=== PATIENT | female | born 1950 | race African-American/Black ===

== ENCOUNTER 2021-07-18 17:39 | Inpatient (IN) | payer OTHER ==
[2021-07-18] MEDS ORDERED: ACETAMINOPHEN 1000 MG/100 ML VIAL (NON FORMULARY) IVPB ONE (18:32)
[2021-07-18] MEDS ORDERED: SODIUM CHLORIDE 500 ML IV STA ×2 (18:33→23:01)
[2021-07-18] MEDS ORDERED: ACETAMINOPHEN INJECTION 100 ML IVPB ONE (18:35)
[2021-07-18 20:17] LABS: BASO % 0.8 % (0-2.0); EOS % 0.1 % (0-4.5); HEMATOCRIT 36.3 % (32.4-45.2); HEMOGLOBIN 11.6 GM/dL (10.7-15.3); LYMPH % 18.6 % (8-40); MCH 21.7 pg (25.7-33.7); MEAN CELL VOLUME 67.6 fl (80-96); MEAN PLT VOLUME 8.9 fl (7.5-11.1); NEUT % 73.5 % (42.8-82.8); PLATELET COUNT 264 10^3/uL (134-434); RBC 5.37 M/mm3 (3.60-5.2); RDW 15.5 % (11.6-15.6); WHITE BLOOD COUNT 9.3 K/mm3 (4.0-10.0)
[2021-07-18 20:20] LABS: EPI CELLS >36 /uL (0-25.1); HYALINE CASTS 2 /uL (0-3.1); URINE APPEARANCE TURBID; URINE BACTERIA 771 /uL (0-1359); URINE BILIRUBIN NEGATIVE (NEGATIVE); URINE COLOR YELLOW; URINE GLUCOSE (UA) NEGATIVE (NEGATIVE); URINE KETONE 1+ (NEGATIVE); URINE LEUK ESTERASE NEGATIVE (NEGATIVE); URINE NITRITE NEGATIVE (NEGATIVE); URINE PROTEIN 4+ (NEGATIVE); URINE RBC 15 /uL (0-23.9); URINE WBC 18 /uL (0-25.8)
[2021-07-18 20:21] LABS: INR 1.15 (0.83-1.09); PROTHROMBIN TIME (PATIENT) 13.8 SEC (9.7-13.0)
[2021-07-18 20:24] LABS: ACTIVATED PTT 26.6 SECONDS (25.2-36.5)
[2021-07-18 20:39] LABS: VENOUS BASE EXCESS -0.4 mmol/L (-2-2); VENOUS O2 SATURATION 27.3 % (70-80); VENOUS PCO2 45.1 mmHg (38-52); VENOUS PH 7.367 (7.310-7.410)
[2021-07-18 20:44] LABS: ANISOCYTOSIS 1+; MACROCYTOSIS 0; OVALOCYTE 1+; PLATELET ESTIMATE NORMAL
[2021-07-18 20:50] LABS: CHLORIDE 101 mmol/L (98-107); SODIUM 136 mmol/L (136-145)
[2021-07-18 20:51] LABS: CALCIUM 8.9 mg/dL (8.5-10.1)
[2021-07-18 20:52] LABS: ALBUMIN 3.6 g/dl (3.4-5.0); ANION GAP 10 MMOL/L (8-16); BLOOD UREA NITROGEN 17.2 mg/dL (7-18); CO2 25 mmol/L (21-32); GLUCOSE,RANDOM 127 mg/dL (74-106)
[2021-07-18 20:55] LABS: CREATININE 1.4 mg/dL (0.55-1.3); SGOT/AST 24 U/L (15-37); SGPT/ALT 16 U/L (13-61)
[2021-07-18 20:56] LABS: LDH 405 U/L (84-246)
[2021-07-18 20:57] LABS: BILIRUBIN,TOTAL 0.6 mg/dL (0.2-1); TOT PROT 7.8 g/dl (6.4-8.2)
[2021-07-18] MEDS ORDERED: CEFTRIAXONE 1 MG in DEXTROSE 5%-WATER - 50 ML IVPB ONE (20:57)
[2021-07-18 20:58] LABS: ALK PHOS 86 U/L (45-117)
[2021-07-18] MEDS ORDERED: CEFTRIAXONE 1 GM/50 ML BAG ONE (21:32)
[2021-07-19] MEDS ORDERED: CEFTRIAXONE 1 GM in DEXTROSE 5%-WATER - 50 ML IVPB SCH (10:00)
[2021-07-19] MEDS ORDERED: CEFTRIAXONE 1 GM/50 ML BAG ONE (10:07)
[2021-07-19] MEDS ORDERED: HEPARIN NA (PORCINE) 5,000 UNITS/ML 1ML VIAL ONE (10:07)
[2021-07-19] MEDS ORDERED: INSULIN (LEVEMIR) 100 UNITS/ML UNITS SQ ONE (11:20)
[2021-07-19] MEDS: INSULIN (LEVEMIR) 100 UNITS/ML UNITS SQ SCH (11:34)
[2021-07-19] MEDS: HEPARIN NA (PORCINE) 5,000 UNITS/ML 1ML VIAL SQ SCH ×2 (11:34→23:25)
[2021-07-19] MEDS ORDERED: metFORMIN HCL 500 MG TABLET (FP) ONE (16:45)
[2021-07-19] MEDS: metFORMIN HCL 500 MG TABLET (FP) PO SCH (16:54)
[2021-07-19] MEDS: ATORVASTATIN CA 20 MG TABLET (FP) PO SCH (23:25)
[2021-07-20 01:58] VITALS: BMI 32.8
[2021-07-20] MEDS: ACETAMINOPHEN 325 MG TABLET (FP) PO PRN ×2 (04:20→18:12)
[2021-07-20] MEDS: metFORMIN HCL 500 MG TABLET (FP) PO SCH ×2 (07:54→16:40)
[2021-07-20] MEDS: INSULIN (LEVEMIR) 100 UNITS/ML UNITS SQ SCH (07:55)
[2021-07-20 08:14] LABS: BASO % 0.7 % (0-2.0); EOS % 1.5 % (0-4.5); HEMATOCRIT 33.2 % (32.4-45.2); HEMOGLOBIN 10.7 GM/dL (10.7-15.3); LYMPH % 18.4 % (8-40); MCHC 32.1 g/dl (32.0-36.0); MEAN CELL VOLUME 68.6 fl (80-96); MEAN PLT VOLUME 8.7 fl (7.5-11.1); MONO % 11.1 % (3.8-10.2); NEUT % 68.3 % (42.8-82.8); PLATELET COUNT 255 10^3/uL (134-434); RBC 4.83 M/mm3 (3.60-5.2); RDW 15.8 % (11.6-15.6); WHITE BLOOD COUNT 8.9 K/mm3 (4.0-10.0)
[2021-07-20 08:21] LABS: ALBUMIN 2.9 g/dl (3.4-5.0); BLOOD UREA NITROGEN 24.3 mg/dL (7-18)
[2021-07-20 08:25] LABS: BILIRUBIN,TOTAL 0.5 mg/dL (0.2-1); CREATININE 1.5 mg/dL (0.55-1.3)
[2021-07-20 08:26] LABS: TOT PROT 6.6 g/dl (6.4-8.2)
[2021-07-20] MEDS ORDERED: cefTRIAXone SODIUM 1 GM VIAL ONE (10:52)
[2021-07-20] MEDS ORDERED: DEXTROSE 5%-WATER - 50 ML IVPB ONE (10:52)
[2021-07-20] MEDS ORDERED: PT OWN MED DRAWER 7, Y5N ONE (10:52)
[2021-07-20] MEDS: CEFTRIAXONE 1 GM in DEXTROSE 5%-WATER - 50 ML IVPB SCH (10:55)
[2021-07-20] MEDS: HEPARIN NA (PORCINE) 5,000 UNITS/ML 1ML VIAL SQ SCH ×2 (10:55→21:41)
[2021-07-20] MEDS: ATORVASTATIN CA 20 MG TABLET (FP) PO SCH (21:40)
[2021-07-21] MEDS: ENOXAPARIN NA (PORCINE) 80 MG/0.8 ML DISP.SYRIN SQ SCH ×3 (00:30→21:00)
[2021-07-21] MEDS: ACETAMINOPHEN 325 MG TABLET (FP) PO PRN (05:25)
[2021-07-21] MEDS: metFORMIN HCL 500 MG TABLET (FP) PO SCH ×2 (06:50→16:59)
[2021-07-21] MEDS: INSULIN (LEVEMIR) 100 UNITS/ML UNITS SQ SCH (06:53)
[2021-07-21 07:46] LABS: BASO % 1.2 % (0-2.0); EOS % 2.8 % (0-4.5); HEMATOCRIT 32.1 % (32.4-45.2); HEMOGLOBIN 10.4 GM/dL (10.7-15.3); LYMPH % 23.2 % (8-40); MCH 22.1 pg (25.7-33.7); MCHC 32.4 g/dl (32.0-36.0); MEAN CELL VOLUME 68.2 fl (80-96); MEAN PLT VOLUME 8.6 fl (7.5-11.1); MONO % 12.1 % (3.8-10.2); NEUT % 60.7 % (42.8-82.8); PLATELET COUNT 258 10^3/uL (134-434); RBC 4.71 M/mm3 (3.60-5.2); RDW 15.8 % (11.6-15.6); WHITE BLOOD COUNT 7.3 K/mm3 (4.0-10.0)
[2021-07-21 08:04] LABS: CALCIUM 8.1 mg/dL (8.5-10.1)
[2021-07-21 08:05] LABS: ALBUMIN 2.6 g/dl (3.4-5.0)
[2021-07-21 08:08] LABS: CREATININE 1.2 mg/dL (0.55-1.3)
[2021-07-21 08:10] LABS: BILIRUBIN,TOTAL 0.4 mg/dL (0.2-1); TOT PROT 6.1 g/dl (6.4-8.2)
[2021-07-21] MEDS ORDERED: ASPIRIN 325 MG TABLET PO SCH (10:00)
[2021-07-21] MEDS ORDERED: ENOXAPARIN NA (PORCINE) 40 MG/0.4 ML DISP.SYRIN SQ SCH (10:00)
[2021-07-21] MEDS ORDERED: cefTRIAXone SODIUM 1 GM VIAL ONE (10:44)
[2021-07-21] MEDS ORDERED: DEXTROSE 5%-WATER - 50 ML IVPB ONE (10:45)
[2021-07-21] MEDS: CEFTRIAXONE 1 GM in DEXTROSE 5%-WATER - 50 ML IVPB SCH (10:47)
[2021-07-21] MEDS: ASPIRIN COATED 81 MG TABLET.EC PO SCH (11:51)
[2021-07-21] MEDS: ATORVASTATIN CA 20 MG TABLET (FP) PO SCH (21:00)
[2021-07-22] MEDS: metFORMIN HCL 500 MG TABLET (FP) PO SCH ×2 (07:13→17:39)
[2021-07-22] MEDS: INSULIN (LEVEMIR) 100 UNITS/ML UNITS SQ SCH (07:13)
[2021-07-22 07:34] LABS: BASO % 1.2 % (0-2.0); EOS % 3.6 % (0-4.5); HEMATOCRIT 32.9 % (32.4-45.2); HEMOGLOBIN 10.8 GM/dL (10.7-15.3); LYMPH % 26.7 % (8-40); MCH 22.3 pg (25.7-33.7); MCHC 32.7 g/dl (32.0-36.0); NEUT % 55.5 % (42.8-82.8); PLATELET COUNT 285 10^3/uL (134-434); RBC 4.83 M/mm3 (3.60-5.2); RDW 15.6 % (11.6-15.6); WHITE BLOOD COUNT 5.7 K/mm3 (4.0-10.0)
[2021-07-22 07:46] LABS: CHLORIDE 105 mmol/L (98-107); SODIUM 139 mmol/L (136-145)
[2021-07-22 07:49] LABS: ANION GAP 7 MMOL/L (8-16); BLOOD UREA NITROGEN 19.7 mg/dL (7-18); CALCIUM 8.5 mg/dL (8.5-10.1); CO2 26 mmol/L (21-32); GLUCOSE,RANDOM 90 mg/dL (74-106)
[2021-07-22 07:52] LABS: CREATININE 1.1 mg/dL (0.55-1.3); IRON SERUM 38 ug/dL (50-175); TOTAL IRON BINDING CAPACITY 221 ug/dL (250-450)
[2021-07-22 08:28] LABS: LDH 243 U/L (84-246)
[2021-07-22] MEDS ORDERED: DEXTROSE 5%-WATER - 50 ML IVPB ONE (10:58)
[2021-07-22] MEDS ORDERED: cefTRIAXone SODIUM 1 GM VIAL ONE (10:58)
[2021-07-22] MEDS: ENOXAPARIN NA (PORCINE) 80 MG/0.8 ML DISP.SYRIN SQ SCH ×2 (11:11→21:04)
[2021-07-22] MEDS: CEFTRIAXONE 1 GM in DEXTROSE 5%-WATER - 50 ML IVPB SCH (11:12)
[2021-07-22] MEDS: ASPIRIN COATED 81 MG TABLET.EC PO SCH (11:12)
[2021-07-22] MEDS: ATORVASTATIN CA 20 MG TABLET (FP) PO SCH (21:03)
[2021-07-23] MEDS: INSULIN (LEVEMIR) 100 UNITS/ML UNITS SQ SCH (06:19)
[2021-07-23] MEDS: metFORMIN HCL 500 MG TABLET (FP) PO SCH ×2 (06:19→17:48)
[2021-07-23 07:50] LABS: BASO % 0.8 % (0-2.0); EOS % 4.5 % (0-4.5); HEMATOCRIT 31.4 % (32.4-45.2); HEMOGLOBIN 10.3 GM/dL (10.7-15.3); LYMPH % 35.4 % (8-40); MCHC 32.7 g/dl (32.0-36.0); MEAN CELL VOLUME 67.3 fl (80-96); MEAN PLT VOLUME 8.9 fl (7.5-11.1); MONO % 11.9 % (3.8-10.2); NEUT % 47.4 % (42.8-82.8); PLATELET COUNT 284 10^3/uL (134-434); RBC 4.66 M/mm3 (3.60-5.2); RDW 15.5 % (11.6-15.6); WHITE BLOOD COUNT 5.2 K/mm3 (4.0-10.0)
[2021-07-23 07:57] LABS: ALBUMIN 2.7 g/dl (3.4-5.0); BLOOD UREA NITROGEN 17.6 mg/dL (7-18); CALCIUM 8.4 mg/dL (8.5-10.1)
[2021-07-23 08:00] LABS: CREATININE 1.1 mg/dL (0.55-1.3)
[2021-07-23 08:02] LABS: BILIRUBIN,TOTAL 0.4 mg/dL (0.2-1); TOT PROT 6.4 g/dl (6.4-8.2)
[2021-07-23] MEDS ORDERED: DEXTROSE 5%-WATER - 50 ML IVPB ONE (09:24)
[2021-07-23] MEDS ORDERED: cefTRIAXone SODIUM 1 GM VIAL ONE (09:24)
[2021-07-23] MEDS: CEFTRIAXONE 1 GM in DEXTROSE 5%-WATER - 50 ML IVPB SCH (09:54)
[2021-07-23] MEDS: ENOXAPARIN NA (PORCINE) 80 MG/0.8 ML DISP.SYRIN SQ SCH ×2 (09:54→21:23)
[2021-07-23] MEDS: ASPIRIN COATED 81 MG TABLET.EC PO SCH (09:55)
[2021-07-23 11:46] LABS: ANISOCYTOSIS 1+; MACROCYTOSIS 0; OVALOCYTE 2+; PLATELET ESTIMATE NORMAL
[2021-07-23] MEDS: ATORVASTATIN CA 20 MG TABLET (FP) PO SCH (21:23)
[2021-07-24] MEDS: ACETAMINOPHEN 325 MG TABLET (FP) PO PRN (06:10)
[2021-07-24] MEDS: metFORMIN HCL 500 MG TABLET (FP) PO SCH ×2 (06:12→16:49)
[2021-07-24 07:20] LABS: BASO % 1.1 % (0-2.0); EOS % 4.5 % (0-4.5); HEMATOCRIT 32.3 % (32.4-45.2); HEMOGLOBIN 10.4 GM/dL (10.7-15.3); LYMPH % 37.7 % (8-40); MCH 21.9 pg (25.7-33.7); MCHC 32.1 g/dl (32.0-36.0); MEAN CELL VOLUME 68.3 fl (80-96); MEAN PLT VOLUME 8.9 fl (7.5-11.1); MONO % 10.7 % (3.8-10.2); PLATELET COUNT 286 10^3/uL (134-434); RBC 4.73 M/mm3 (3.60-5.2); RDW 15.8 % (11.6-15.6); WHITE BLOOD COUNT 4.7 K/mm3 (4.0-10.0)
[2021-07-24 07:38] LABS: CALCIUM 8.8 mg/dL (8.5-10.1)
[2021-07-24] MEDS: INSULIN (LEVEMIR) 100 UNITS/ML UNITS SQ SCH (07:38)
[2021-07-24 07:39] LABS: BLOOD UREA NITROGEN 16.8 mg/dL (7-18)
[2021-07-24 07:42] LABS: CREATININE 1.1 mg/dL (0.55-1.3)
[2021-07-24] MEDS: ASPIRIN COATED 81 MG TABLET.EC PO SCH (10:11)
[2021-07-24] MEDS: ENOXAPARIN NA (PORCINE) 80 MG/0.8 ML DISP.SYRIN SQ SCH (10:11)
[2021-07-24] MEDS ORDERED: ENOXAPARIN NA (PORCINE) 80 MG/0.8 ML DISP.SYRIN SQ ONE (15:30)
[2021-07-24] MEDS: ATORVASTATIN CA 20 MG TABLET (FP) PO SCH (22:02)
[2021-07-25] MEDS: INSULIN (LEVEMIR) 100 UNITS/ML UNITS SQ SCH (06:16)
[2021-07-25] MEDS: metFORMIN HCL 500 MG TABLET (FP) PO SCH ×2 (06:16→16:55)
[2021-07-25 08:15] LABS: BASO % 1.3 % (0-2.0); EOS % 3.3 % (0-4.5); HEMATOCRIT 33.2 % (32.4-45.2); HEMOGLOBIN 10.7 GM/dL (10.7-15.3); LYMPH % 28.5 % (8-40); MCH 21.9 pg (25.7-33.7); MCHC 32.3 g/dl (32.0-36.0); MEAN CELL VOLUME 67.7 fl (80-96); MEAN PLT VOLUME 8.5 fl (7.5-11.1); MONO % 9.8 % (3.8-10.2); NEUT % 57.1 % (42.8-82.8); PLATELET COUNT 308 10^3/uL (134-434); RBC 4.91 M/mm3 (3.60-5.2); RDW 16.1 % (11.6-15.6)
[2021-07-25 08:23] LABS: BLOOD UREA NITROGEN 18.5 mg/dL (7-18)
[2021-07-25 08:26] LABS: CREATININE 1.1 mg/dL (0.55-1.3)
[2021-07-25 08:27] LABS: BILIRUBIN,TOTAL 0.3 mg/dL (0.2-1); TOT PROT 6.8 g/dl (6.4-8.2)
[2021-07-25 18:11] LABS: FREE KAPPA,SERUM 66.4 mg/L (3.3-19.4)
[2021-07-25] MEDS: ATORVASTATIN CA 20 MG TABLET (FP) PO SCH (21:08)
[2021-07-26] MEDS: INSULIN (LEVEMIR) 100 UNITS/ML UNITS SQ SCH (06:07)
[2021-07-26] MEDS: metFORMIN HCL 500 MG TABLET (FP) PO SCH ×2 (06:07→17:27)
[2021-07-26 07:36] LABS: BASO % 0.8 % (0-2.0); EOS % 3.5 % (0-4.5); HEMATOCRIT 31.5 % (32.4-45.2); HEMOGLOBIN 10.3 GM/dL (10.7-15.3); LYMPH % 27.5 % (8-40); MCH 22.1 pg (25.7-33.7); MCHC 32.6 g/dl (32.0-36.0); MEAN CELL VOLUME 67.9 fl (80-96); MEAN PLT VOLUME 8.3 fl (7.5-11.1); MONO % 8.5 % (3.8-10.2); NEUT % 59.7 % (42.8-82.8); PLATELET COUNT 299 10^3/uL (134-434); RBC 4.64 M/mm3 (3.60-5.2); RDW 15.7 % (11.6-15.6); WHITE BLOOD COUNT 4.7 K/mm3 (4.0-10.0)
[2021-07-26 07:53] LABS: ALBUMIN 2.9 g/dl (3.4-5.0); BLOOD UREA NITROGEN 18.9 mg/dL (7-18)
[2021-07-26 07:55] LABS: URIC ACID 6.5 mg/dL (2.6-7.2)
[2021-07-26 07:56] LABS: CREATININE 1.1 mg/dL (0.55-1.3)
[2021-07-26 07:57] LABS: BILIRUBIN,TOTAL 0.6 mg/dL (0.2-1); TOT PROT 6.4 g/dl (6.4-8.2)
[2021-07-26] MEDS: ENOXAPARIN NA (PORCINE) 80 MG/0.8 ML DISP.SYRIN SQ SCH (10:14)
[2021-07-26] MEDS: ASPIRIN COATED 81 MG TABLET.EC PO SCH (10:14)
[2021-07-26 14:11] LABS: DRVVT - 43.6 sec (0.0-47.0); HEXAGONAL PHASE PHOSPHOLIPID 0 sec (0-11)
[2021-07-26] MEDS: ATORVASTATIN CA 20 MG TABLET (FP) PO SCH (21:05)
[2021-07-26] MEDS ORDERED: ENOXAPARIN NA (PORCINE) 80 MG/0.8 ML DISP.SYRIN SQ ONE (22:00)
[2021-07-27] MEDS: metFORMIN HCL 500 MG TABLET (FP) PO SCH ×2 (06:04→16:45)
[2021-07-27] MEDS: INSULIN (LEVEMIR) 100 UNITS/ML UNITS SQ SCH (06:05)
[2021-07-27 06:30] LABS: BASO % 0.8 % (0-2.0); EOS % 3.2 % (0-4.5); HEMATOCRIT 31.5 % (32.4-45.2); HEMOGLOBIN 10.2 GM/dL (10.7-15.3); LYMPH % 38.7 % (8-40); MCH 22.1 pg (25.7-33.7); MCHC 32.5 g/dl (32.0-36.0); MEAN PLT VOLUME 9.1 fl (7.5-11.1); MONO % 8.6 % (3.8-10.2); NEUT % 48.7 % (42.8-82.8); PLATELET COUNT 331 10^3/uL (134-434); RBC 4.63 M/mm3 (3.60-5.2); RDW 15.4 % (11.6-15.6); WHITE BLOOD COUNT 5.6 K/mm3 (4.0-10.0)
[2021-07-27 06:50] LABS: CALCIUM 8.7 mg/dL (8.5-10.1)
[2021-07-27 06:51] LABS: ALBUMIN 2.8 g/dl (3.4-5.0)
[2021-07-27 06:54] LABS: CREATININE 1.1 mg/dL (0.55-1.3)
[2021-07-27 06:55] LABS: BILIRUBIN,TOTAL 0.3 mg/dL (0.2-1)
[2021-07-27 06:57] LABS: TOT PROT 6.3 g/dl (6.4-8.2)
[2021-07-27] MEDS: ASPIRIN COATED 81 MG TABLET.EC PO SCH (10:13)
[2021-07-27] MEDS: APIXABAN 5 MG TABLET PO SCH ×2 (10:13→21:09)
[2021-07-27] MEDS: ATORVASTATIN CA 20 MG TABLET (FP) PO SCH (21:09)
[2021-07-28] MEDS: INSULIN (LEVEMIR) 100 UNITS/ML UNITS SQ SCH (06:31)
[2021-07-28] MEDS: metFORMIN HCL 500 MG TABLET (FP) PO SCH ×2 (06:33→17:12)
[2021-07-28] MEDS: APIXABAN 5 MG TABLET PO SCH ×2 (11:01→21:01)
[2021-07-28] MEDS: ASPIRIN COATED 81 MG TABLET.EC PO SCH (11:01)
[2021-07-28] MEDS: ATORVASTATIN CA 20 MG TABLET (FP) PO SCH (21:01)
[2021-07-29] MEDS: metFORMIN HCL 500 MG TABLET (FP) PO SCH ×2 (06:11→17:09)
[2021-07-29] MEDS: INSULIN (LEVEMIR) 100 UNITS/ML UNITS SQ SCH (06:11)
[2021-07-29 08:07] LABS: BASO % 1.3 % (0-2.0); EOS % 3.3 % (0-4.5); HEMATOCRIT 31.2 % (32.4-45.2); LYMPH % 34.3 % (8-40); MCHC 32.2 g/dl (32.0-36.0); MEAN CELL VOLUME 68.2 fl (80-96); MEAN PLT VOLUME 8.9 fl (7.5-11.1); MONO % 7.7 % (3.8-10.2); NEUT % 53.4 % (42.8-82.8); PLATELET COUNT 325 10^3/uL (134-434); RBC 4.57 M/mm3 (3.60-5.2); RDW 16.1 % (11.6-15.6); WHITE BLOOD COUNT 5.3 K/mm3 (4.0-10.0)
[2021-07-29 08:21] LABS: BLOOD UREA NITROGEN 27.5 mg/dL (7-18); CALCIUM 9.2 mg/dL (8.5-10.1)
[2021-07-29 08:24] LABS: CREATININE 1.1 mg/dL (0.55-1.3)
[2021-07-29 08:25] LABS: BILIRUBIN,TOTAL 0.4 mg/dL (0.2-1)
[2021-07-29 08:26] LABS: TOT PROT 6.2 g/dl (6.4-8.2)
[2021-07-29] MEDS: ASPIRIN COATED 81 MG TABLET.EC PO SCH (10:06)
[2021-07-29] MEDS: APIXABAN 5 MG TABLET PO SCH ×2 (10:06→21:34)
[2021-07-29] MEDS: ATORVASTATIN CA 20 MG TABLET (FP) PO SCH (21:34)
[2021-07-30] MEDS: INSULIN (LEVEMIR) 100 UNITS/ML UNITS SQ SCH (06:14)
[2021-07-30] MEDS: metFORMIN HCL 500 MG TABLET (FP) PO SCH ×2 (06:15→16:42)
[2021-07-30] MEDS: APIXABAN 5 MG TABLET PO SCH ×2 (09:18→21:21)
[2021-07-30] MEDS: ASPIRIN COATED 81 MG TABLET.EC PO SCH (09:18)
[2021-07-30] MEDS ORDERED: MAG HYDROX/AL HYDROX/SIMETH 30 ML UNIT-DOSE CUP PO PRN (16:58)
[2021-07-30] MEDS: ATORVASTATIN CA 20 MG TABLET (FP) PO SCH (21:21)
[2021-07-31] MEDS: INSULIN (LEVEMIR) 100 UNITS/ML UNITS SQ SCH (06:24)
[2021-07-31] MEDS: metFORMIN HCL 500 MG TABLET (FP) PO SCH (06:24)
[2021-07-31] MEDS: APIXABAN 5 MG TABLET PO SCH (09:17)
[2021-07-31] MEDS: ASPIRIN COATED 81 MG TABLET.EC PO SCH (09:17)
[2021-07-31] MEDS ORDERED: POLYETHYLENE GLYCOL (HEALTHYLAX) 3350 17 GM PACKET PO SCH (10:00)
[2021-07-31 15:14] VITALS: BP 141/69; PULSE 61; TEMP 98.8
[2021-08-08 13:07] LABS: APTT 35.1; HEXAGONAL PHOSPHOLIPID NEUTRAL 0
[2021-08-08 13:09] LABS: CARDIOLIPIN AB IGA <10
[2021-08-08 13:10] LABS: B2-GLYCOPROTEIN IGA <10; B2-GLYCOPROTEIN IGG <10; B2-GLYCOPROTEIN IGM <10
== END 2021-07-31 17:58 | DRG 988 ==
LOC: JER 17:39 → JERBED 07-19 00:23 → J7W 07-20 01:15
PROVIDERS: ADMIT Internal Medicine; ATTEND Internal Medicine
PROC: 07B63ZX Excision of Left Axillary Lymphatic, Percutaneous Approach, Diagnostic (ICD-10-PCS; principal; 2021-07-25)
DX: D86.9 Sarcoidosis, unspecified (principal); I82.403 Acute embolism and thrombosis of unspecified deep veins of lower extremity, bilateral; N17.9 Acute kidney failure, unspecified; I10 Essential (primary) hypertension; E11.9 Type 2 diabetes mellitus without complications; E78.5 Hyperlipidemia, unspecified; R91.1 Solitary pulmonary nodule; R59.0 Localized enlarged lymph nodes
CPT/HCPCS: 36415; 70450-TC; 70551-TC; 71045-TC-FY; 71275-TC; 72131-TC; 74176-TC; 76882-TC-RT-FY; 76942-TC; 80048; 80053; 81003; 82085; 82164; 82550; 82607; 82728; 82803; 82962; 83021; 83036; 83540; 83550; 83605; 83615; 83883; 84155; 84165; 84484; 84550; 85025; 85379; 85597; 85610; 85613; 85651; 85660; 85730; 85732; 86038; 86140; 86146; 86147; 86431; 87040; 87086; 87804; 88305-TC; 88341-TC; 93005; 93010; 93306-TC; 93970-TC; 97116-GP; 97161-GP; 99285-25; C9803; J0131; J1644; Q9967; U0003; U0005

== ENCOUNTER 2021-08-29 21:56 | Inpatient (IN) | payer OTHER ==
[2021-08-29] MEDS ORDERED: VANCOMYCIN 1 GM in D5W (PRE-DOCKED) 1,000 MG/250 ML IVPB ONE (23:08)
[2021-08-29] MEDS ORDERED: ACETAMINOPHEN 1000 MG/100 ML VIAL IVPB ONE (23:09)
[2021-08-29] MEDS ORDERED: ACETAMINOPHEN INJECTION 100 ML IVPB ONE (23:20)
[2021-08-29] MEDS ORDERED: VANCOMYCIN 1 GRAM (PRE-DOCKED) 1,000 MG/250 ML BAG IVPB ONE (23:20)
[2021-08-29] MEDS: NYSTATIN 100,000 UNIT/GM TOPICAL CREAM 15 GM TUBE TP SCH (23:30)
[2021-08-29 23:34] LABS: BASO % 0.8 % (0-2.0); HEMATOCRIT 33.3 % (32.4-45.2); HEMOGLOBIN 10.6 GM/dL (10.7-15.3); MCH 21.6 pg (25.7-33.7); MCHC 31.8 g/dl (32.0-36.0); MEAN PLT VOLUME 8.1 fl (7.5-11.1); MONO % 8.2 % (3.8-10.2); PLATELET COUNT 312 10^3/uL (134-434); RBC 4.89 M/mm3 (3.60-5.2); RDW 17.8 % (11.6-15.6); WHITE BLOOD COUNT 4.8 K/mm3 (4.0-10.0)
[2021-08-29 23:36] LABS: EPI CELLS 32 /uL (0-25.1); HYALINE CASTS 1 /uL (0-3.1); PH,URINE 5.5 (5.0-8.0); URINE APPEARANCE CLEAR; URINE BACTERIA 240 /uL (0-1359); URINE BILIRUBIN NEGATIVE (NEGATIVE); URINE COLOR YELLOW; URINE GLUCOSE (UA) NEGATIVE (NEGATIVE); URINE KETONE NEGATIVE (NEGATIVE); URINE LEUK ESTERASE NEGATIVE (NEGATIVE); URINE NITRITE NEGATIVE (NEGATIVE); URINE PROTEIN 2+ (NEGATIVE); URINE UROBILINOGEN 0.2 mg/dL (0.2-1.0); URINE WBC 4 /uL (0-25.8)
[2021-08-29 23:45] LABS: INR 1.32 (0.83-1.09); PROTHROMBIN TIME (PATIENT) 14.8 SEC (9.7-13.0)
[2021-08-29 23:47] LABS: ACTIVATED PTT 33.5 SECONDS (25.2-36.5)
[2021-08-29 23:54] LABS: CALCIUM 9.5 mg/dL (8.5-10.1)
[2021-08-29 23:55] LABS: ALBUMIN 3.5 g/dl (3.4-5.0); MAGNESIUM 1.8 mg/dL (1.8-2.4)
[2021-08-29 23:59] LABS: BILIRUBIN,TOTAL 0.5 mg/dL (0.2-1); TOT PROT 7.2 g/dl (6.4-8.2)
[2021-08-30] MEDS ORDERED: MAG HYDROX/AL HYDROX/SIMETH 30 ML UNIT-DOSE CUP PO PRN (01:15)
[2021-08-30] MEDS: INSULIN (NOVOLOG) ASPART 100 UNITS/ML 10ML VIAL SQ SCH ×4 (07:09→21:31)
[2021-08-30] MEDS: metFORMIN HCL 500 MG TABLET (FP) PO SCH ×2 (07:26→17:19)
[2021-08-30 09:33] LABS: ANISOCYTOSIS 3+; MACROCYTOSIS 1+; OVALOCYTE 1+; PLATELET ESTIMATE NORMAL
[2021-08-30] MEDS ORDERED: cefTRIAXone SODIUM 1 GM VIAL ONE (09:44)
[2021-08-30] MEDS ORDERED: DEXTROSE 5%-WATER - 50 ML IVPB ONE ×2 (09:45→17:19)
[2021-08-30] MEDS: APIXABAN 5 MG TABLET PO SCH ×2 (09:52→21:24)
[2021-08-30] MEDS: POLYETHYLENE GLYCOL (HEALTHYLAX) 3350 17 GM PACKET PO SCH (09:53)
[2021-08-30] MEDS: NYSTATIN 100,000 UNIT/GM TOPICAL CREAM 15 GM TUBE TP SCH ×2 (09:53→21:31)
[2021-08-30] MEDS: ACETAMINOPHEN 325 MG TABLET (FP) PO PRN (09:53)
[2021-08-30] MEDS: ASPIRIN COATED 81 MG TABLET.EC PO SCH (09:53)
[2021-08-30] MEDS: INSULIN (LEVEMIR) 100 UNITS/ML UNITS SQ SCH (09:55)
[2021-08-30] MEDS ORDERED: CEFTRIAXONE 1 GM in DEXTROSE 5%-WATER - 50 ML IVPB SCH (10:00)
[2021-08-30] MEDS: traMADol HCL 50 MG TABLET PO PRN (12:23)
[2021-08-30] MEDS: CEFAZOLIN 1 GM in DEXTROSE 5%-WATER - 1 GM/50 ML IVPB IVPB SCH (17:19)
[2021-08-30] MEDS ORDERED: ceFAZolin SODIUM 1 GM VIAL ONE (17:19)
[2021-08-30] MEDS ORDERED: INSULIN (NOVOLOG) ASPART 100 UNITS/ML 10ML VIAL ONE (17:37)
[2021-08-30] MEDS: ATORVASTATIN CA 20 MG TABLET (FP) PO SCH (21:24)
[2021-08-31] MEDS ORDERED: DEXTROSE 5%-WATER - 50 ML IVPB ONE ×2 (02:01→09:25)
[2021-08-31] MEDS ORDERED: ceFAZolin SODIUM 1 GM VIAL ONE ×2 (02:01→09:25)
[2021-08-31] MEDS: CEFAZOLIN 1 GM in DEXTROSE 5%-WATER - 1 GM/50 ML IVPB IVPB SCH ×2 (02:12→09:30)
[2021-08-31] MEDS: traMADol HCL 50 MG TABLET PO PRN ×2 (02:12→14:37)
[2021-08-31] MEDS: metFORMIN HCL 500 MG TABLET (FP) PO SCH ×2 (06:31→17:47)
[2021-08-31] MEDS: INSULIN (NOVOLOG) ASPART 100 UNITS/ML 10ML VIAL SQ SCH ×4 (06:31→22:05)
[2021-08-31 08:36] LABS: BASO % 0.3 % (0-2.0); HEMATOCRIT 33.4 % (32.4-45.2); HEMOGLOBIN 10.7 GM/dL (10.7-15.3); LYMPH % 23.4 % (8-40); MCH 22.1 pg (25.7-33.7); MCHC 32.1 g/dl (32.0-36.0); MEAN CELL VOLUME 68.7 fl (80-96); MEAN PLT VOLUME 8.6 fl (7.5-11.1); MONO % 11.5 % (3.8-10.2); NEUT % 59.8 % (42.8-82.8); PLATELET COUNT 286 10^3/uL (134-434); RBC 4.86 M/mm3 (3.60-5.2); RDW 17.9 % (11.6-15.6)
[2021-08-31 08:56] LABS: CALCIUM 8.6 mg/dL (8.5-10.1)
[2021-08-31 08:57] LABS: ALBUMIN 2.9 g/dl (3.4-5.0); BLOOD UREA NITROGEN 23.3 mg/dL (7-18)
[2021-08-31 09:00] LABS: CREATININE 1.1 mg/dL (0.55-1.3)
[2021-08-31 09:01] LABS: BILIRUBIN,TOTAL 0.5 mg/dL (0.2-1); TOT PROT 6.6 g/dl (6.4-8.2)
[2021-08-31] MEDS ORDERED: PT OWN MED DRAWER 7, Y5N ONE ×2 (09:25→12:24)
[2021-08-31] MEDS: ASPIRIN COATED 81 MG TABLET.EC PO SCH (09:30)
[2021-08-31] MEDS: NYSTATIN 100,000 UNIT/GM TOPICAL CREAM 15 GM TUBE TP SCH ×2 (09:30→22:04)
[2021-08-31] MEDS: APIXABAN 5 MG TABLET PO SCH ×2 (09:30→22:04)
[2021-08-31] MEDS: INSULIN (LEVEMIR) 100 UNITS/ML UNITS SQ SCH (09:30)
[2021-08-31] MEDS: POLYETHYLENE GLYCOL (HEALTHYLAX) 3350 17 GM PACKET PO SCH (09:30)
[2021-08-31] MEDS: SODIUM CHLORIDE 0.45% 1,000 ML IV SCH (12:26)
[2021-08-31] MEDS: ACYCLOVIR INJECTION 750 MG in DEXTROSE 5%-WATER - 250 ML IVPB SCH ×2 (12:27→18:41)
[2021-08-31] MEDS: GABAPENTIN 100 MG CAPSULE PO SCH ×2 (14:37→22:04)
[2021-08-31] MEDS: ATORVASTATIN CA 20 MG TABLET (FP) PO SCH (22:04)
[2021-08-31] MEDS: ACETAMINOPHEN 325 MG TABLET (FP) PO PRN (22:41)
[2021-09-01] MEDS ORDERED: PT OWN MED DRAWER 7, Y5N ONE ×2 (01:29→09:14)
[2021-09-01] MEDS: ACYCLOVIR INJECTION 750 MG in DEXTROSE 5%-WATER - 250 ML IVPB SCH ×3 (01:50→17:53)
[2021-09-01] MEDS: GABAPENTIN 100 MG CAPSULE PO SCH ×3 (06:58→21:19)
[2021-09-01] MEDS: INSULIN (LEVEMIR) 100 UNITS/ML UNITS SQ SCH (06:58)
[2021-09-01] MEDS: metFORMIN HCL 500 MG TABLET (FP) PO SCH ×2 (06:58→16:43)
[2021-09-01] MEDS: INSULIN (NOVOLOG) ASPART 100 UNITS/ML 10ML VIAL SQ SCH ×4 (06:59→21:19)
[2021-09-01 08:53] LABS: BLOOD UREA NITROGEN 25.1 mg/dL (7-18); CALCIUM 8.7 mg/dL (8.5-10.1)
[2021-09-01 08:57] LABS: CREATININE 1.1 mg/dL (0.55-1.3)
[2021-09-01] MEDS: ASPIRIN COATED 81 MG TABLET.EC PO SCH (09:16)
[2021-09-01] MEDS: APIXABAN 5 MG TABLET PO SCH ×2 (09:16→21:19)
[2021-09-01] MEDS: POLYETHYLENE GLYCOL (HEALTHYLAX) 3350 17 GM PACKET PO SCH (09:16)
[2021-09-01] MEDS: NYSTATIN 100,000 UNIT/GM TOPICAL CREAM 15 GM TUBE TP SCH ×2 (09:17→21:19)
[2021-09-01] MEDS: SODIUM CHLORIDE 0.45% 1,000 ML IV SCH (13:33)
[2021-09-01] MEDS: ATORVASTATIN CA 20 MG TABLET (FP) PO SCH (21:19)
[2021-09-02] MEDS ORDERED: PT OWN MED DRAWER 7, Y5N ONE ×2 (01:04→13:41)
[2021-09-02] MEDS: SODIUM CHLORIDE 0.45% 1,000 ML IV SCH ×2 (01:05→21:55)
[2021-09-02] MEDS: ACYCLOVIR INJECTION 750 MG in DEXTROSE 5%-WATER - 250 ML IVPB SCH ×3 (01:05→17:15)
[2021-09-02] MEDS: GABAPENTIN 100 MG CAPSULE PO SCH ×3 (06:18→21:54)
[2021-09-02] MEDS: metFORMIN HCL 500 MG TABLET (FP) PO SCH ×2 (06:18→17:15)
[2021-09-02] MEDS: INSULIN (LEVEMIR) 100 UNITS/ML UNITS SQ SCH (06:19)
[2021-09-02] MEDS: INSULIN (NOVOLOG) ASPART 100 UNITS/ML 10ML VIAL SQ SCH ×4 (06:20→21:55)
[2021-09-02] MEDS ORDERED: INSULIN (LEVEMIR) 100 UNITS/ML UNITS SQ ONE (07:13)
[2021-09-02] MEDS: ASPIRIN COATED 81 MG TABLET.EC PO SCH (09:12)
[2021-09-02] MEDS: NYSTATIN 100,000 UNIT/GM TOPICAL CREAM 15 GM TUBE TP SCH ×2 (09:12→21:54)
[2021-09-02] MEDS: APIXABAN 5 MG TABLET PO SCH ×2 (09:12→21:54)
[2021-09-02] MEDS: POLYETHYLENE GLYCOL (HEALTHYLAX) 3350 17 GM PACKET PO SCH (09:12)
[2021-09-02] MEDS: ACETAMINOPHEN 325 MG TABLET (FP) PO PRN (17:37)
[2021-09-02] MEDS: ATORVASTATIN CA 20 MG TABLET (FP) PO SCH (21:54)
[2021-09-03] MEDS ORDERED: PT OWN MED DRAWER 7, Y5N ONE (02:16)
[2021-09-03] MEDS: ACYCLOVIR INJECTION 750 MG in DEXTROSE 5%-WATER - 250 ML IVPB SCH ×2 (02:20→09:50)
[2021-09-03] MEDS: GABAPENTIN 100 MG CAPSULE PO SCH ×2 (06:04→13:03)
[2021-09-03] MEDS: metFORMIN HCL 500 MG TABLET (FP) PO SCH (06:04)
[2021-09-03] MEDS: INSULIN (LEVEMIR) 100 UNITS/ML UNITS SQ SCH (06:05)
[2021-09-03] MEDS: INSULIN (NOVOLOG) ASPART 100 UNITS/ML 10ML VIAL SQ SCH ×2 (06:05→11:43)
[2021-09-03] MEDS ORDERED: INSULIN (LEVEMIR) 100 UNITS/ML UNITS SQ ONE (06:13)
[2021-09-03] MEDS ORDERED: INSULIN (NOVOLOG) ASPART 100 UNITS/ML 10ML VIAL ONE (06:42)
[2021-09-03] MEDS: POLYETHYLENE GLYCOL (HEALTHYLAX) 3350 17 GM PACKET PO SCH (09:51)
[2021-09-03] MEDS: NYSTATIN 100,000 UNIT/GM TOPICAL CREAM 15 GM TUBE TP SCH (09:51)
[2021-09-03] MEDS: ASPIRIN COATED 81 MG TABLET.EC PO SCH (09:51)
[2021-09-03] MEDS: APIXABAN 5 MG TABLET PO SCH (09:51)
[2021-09-03] MEDS: SODIUM CHLORIDE 0.45% 1,000 ML IV SCH (13:03)
[2021-09-03 14:50] VITALS: BP 141/75; PULSE 68; TEMP 98.7
[2021-09-03 17:07] VITALS: BMI 33.7
[2021-09-05 12:59] LABS: HIV INTERPRETATION NEGATIVE (NEGATIVE)
== END 2021-09-03 15:54 | disposition home health service (06) | DRG 600 ==
LOC: JER 21:56 → JERBED 08-30 00:55 → J8W 08-30 06:10
PROVIDERS: ADMIT Internal Medicine; ATTEND Internal Medicine
DX: N61.0 Mastitis without abscess (principal); B37.89 Other sites of candidiasis; I10 Essential (primary) hypertension; E11.9 Type 2 diabetes mellitus without complications; E78.5 Hyperlipidemia, unspecified; N64.4 Mastodynia; B02.9 Zoster without complications; R21 Rash and other nonspecific skin eruption; R59.9 Enlarged lymph nodes, unspecified; Z86.718 Personal history of other venous thrombosis and embolism; D86.9 Sarcoidosis, unspecified
CPT/HCPCS: 36415; 71045-TC-FY; 80048; 80053; 81003; 82962; 83735; 85025; 85610; 85730; 87040; 87086; 87389; 93005; 93010; 97116-GP; 97161-GP; 99285-25; C9803; J0131; U0003; U0005

== ENCOUNTER 2021-12-31 12:47 | Inpatient (IN) | payer OTHER ==
[2021-12-31 14:39] LABS: BASO % 0.5 % (0-2.0); EOS % 2.5 % (0-4.5); HEMOGLOBIN 11.6 GM/dL (10.7-15.3); LYMPH % 19.5 % (8-40); MCH 21.1 pg (25.7-33.7); MCHC 30.4 g/dl (32.0-36.0); MEAN CELL VOLUME 69.5 fl (80-96); MONO % 4.9 % (3.8-10.2); NEUT % 72.6 % (42.8-82.8); PLATELET COUNT 228 10^3/uL (134-434); RBC 5.47 M/mm3 (3.60-5.2); RDW 15.4 % (11.6-15.6); WHITE BLOOD COUNT 6.9 K/mm3 (4.0-10.0)
[2021-12-31 14:48] LABS: INR 1.02 (0.83-1.09); PROTHROMBIN TIME (PATIENT) 11.7 SEC (9.7-13.0)
[2021-12-31 14:50] LABS: ACTIVATED PTT 32.1 SECONDS (25.2-36.5)
[2021-12-31 14:54] LABS: CHLORIDE 103 mmol/L (98-107); SODIUM 138 mmol/L (136-145)
[2021-12-31 14:56] LABS: CALCIUM 9.5 mg/dL (8.5-10.1)
[2021-12-31 14:57] LABS: ALBUMIN 3.5 g/dl (3.4-5.0); ANION GAP 5 MMOL/L (8-16); BLOOD UREA NITROGEN 20.3 mg/dL (7-18); CO2 29 mmol/L (21-32)
[2021-12-31 15:00] LABS: CREATININE 1.3 mg/dL (0.55-1.3); SGOT/AST 14 U/L (15-37); SGPT/ALT 18 U/L (13-61)
[2021-12-31 15:01] LABS: BILIRUBIN,TOTAL 0.4 mg/dL (0.2-1); TOT PROT 7.3 g/dl (6.4-8.2)
[2021-12-31 15:02] LABS: ALK PHOS 137 U/L (45-117)
[2021-12-31 15:04] LABS: GLUCOSE,RANDOM 445 mg/dL (74-106)
[2021-12-31] MEDS ORDERED: LACTATED RINGERS SOLUTION 1000 ML INFUS.BAG IV ONE (15:08)
[2021-12-31] MEDS ORDERED: INSULIN REGULAR HUMAN 100 UNITS/ML *VIAL IVPUSH ONE (15:08)
[2021-12-31 15:20] LABS: ANISOCYTOSIS 2+; MACROCYTOSIS 0; PLATELET ESTIMATE NORMAL
[2022-01-01] MEDS ORDERED: ACETAMINOPHEN 325 MG TABLET (FP) PO PRN (01:50)
[2022-01-01] MEDS ORDERED: MAG HYDROX/AL HYDROX/SIMETH 30 ML UNIT-DOSE CUP PO PRN (01:50)
[2022-01-01] MEDS ORDERED: SODIUM CHLORIDE 1,000 ML IV SCH (02:00)
[2022-01-01] MEDS ORDERED: PATIENT'S OWN MEDICATION (NON-FORMULARY) (Dulaglutide [Trulicity] 0.75 MG/0.5 ML Pen.Injct SQ SCH (02:00)
[2022-01-01] MEDS ORDERED: amLODIPine BESYLATE 5 MG TABLET (FP) ONE ×2 (02:20→02:22)
[2022-01-01] MEDS: amLODIPine BESYLATE 5 MG TABLET (FP) PO SCH ×2 (02:31→10:55)
[2022-01-01] MEDS: GABAPENTIN 100 MG CAPSULE PO PRN ×2 (03:53→21:27)
[2022-01-01 04:34] VITALS: BMI 32.9
[2022-01-01] MEDS ORDERED: PATIENT'S OWN MEDICATION (NON-FORMULARY) (Insulin Aspart [Novolog] 100 UNIT/ML Cartridge) SQ SCH (06:00)
[2022-01-01] MEDS: metFORMIN HCL 500 MG TABLET (FP) PO SCH ×2 (06:52→17:58)
[2022-01-01] MEDS: INSULIN SLIDING SCALE (NOVOLOG) 1 VIAL SQ SCH ×4 (06:53→21:49)
[2022-01-01 07:11] LABS: BASO % 0.4 % (0-2.0); EOS % 2.5 % (0-4.5); HEMATOCRIT 37.9 % (32.4-45.2); HEMOGLOBIN 11.5 GM/dL (10.7-15.3); LYMPH % 32.8 % (8-40); MCH 21.4 pg (25.7-33.7); MCHC 30.4 g/dl (32.0-36.0); MEAN CELL VOLUME 70.2 fl (80-96); MEAN PLT VOLUME 9.2 fl (7.5-11.1); MONO % 5.6 % (3.8-10.2); NEUT % 58.7 % (42.8-82.8); PLATELET COUNT 209 10^3/uL (134-434); RDW 15.5 % (11.6-15.6); WHITE BLOOD COUNT 6.2 K/mm3 (4.0-10.0)
[2022-01-01 07:43] LABS: ALBUMIN 3.4 g/dl (3.4-5.0); BLOOD UREA NITROGEN 16.7 mg/dL (7-18); CALCIUM 9.1 mg/dL (8.5-10.1)
[2022-01-01 07:48] LABS: BILIRUBIN,TOTAL 0.4 mg/dL (0.2-1); TOT PROT 6.9 g/dl (6.4-8.2)
[2022-01-01] MEDS: POLYETHYLENE GLYCOL (HEALTHYLAX) 3350 17 GM PACKET PO SCH ×2 (10:54→14:05)
[2022-01-01] MEDS: ASPIRIN COATED 81 MG TABLET.EC PO SCH (10:55)
[2022-01-01] MEDS: APIXABAN 5 MG TABLET PO SCH ×2 (10:55→21:25)
[2022-01-01] MEDS: INSULIN (LEVEMIR) 100 UNITS/ML UNITS SQ SCH (13:42)
[2022-01-01] MEDS: INSULIN (NOVOLOG) ASPART 100 UNITS/ML 10ML VIAL SQ SCH (17:35)
[2022-01-01] MEDS: ATORVASTATIN CA 20 MG TABLET (FP) PO SCH (21:26)
[2022-01-02] MEDS: INSULIN SLIDING SCALE (NOVOLOG) 1 VIAL SQ SCH ×4 (06:04→21:44)
[2022-01-02] MEDS: metFORMIN HCL 500 MG TABLET (FP) PO SCH ×2 (07:21→17:32)
[2022-01-02] MEDS: INSULIN (NOVOLOG) ASPART 100 UNITS/ML 10ML VIAL SQ SCH ×2 (07:21→12:08)
[2022-01-02 07:33] LABS: BASO % 0.7 % (0-2.0); EOS % 4.3 % (0-4.5); MCH 22.5 pg (25.7-33.7); MCHC 32.4 g/dl (32.0-36.0); MEAN CELL VOLUME 69.3 fl (80-96); MEAN PLT VOLUME 9.1 fl (7.5-11.1); MONO % 7.9 % (3.8-10.2); NEUT % 45.1 % (42.8-82.8); PLATELET COUNT 198 10^3/uL (134-434); RDW 15.2 % (11.6-15.6); WHITE BLOOD COUNT 4.5 K/mm3 (4.0-10.0)
[2022-01-02 07:59] LABS: BLOOD UREA NITROGEN 20.7 mg/dL (7-18)
[2022-01-02 08:00] LABS: CALCIUM 8.5 mg/dL (8.5-10.1)
[2022-01-02 08:01] LABS: ALBUMIN 2.8 g/dl (3.4-5.0)
[2022-01-02 08:05] LABS: BILIRUBIN,TOTAL 0.5 mg/dL (0.2-1); TOT PROT 5.9 g/dl (6.4-8.2)
[2022-01-02] MEDS: amLODIPine BESYLATE 5 MG TABLET (FP) PO SCH (09:21)
[2022-01-02] MEDS: ASPIRIN COATED 81 MG TABLET.EC PO SCH (09:21)
[2022-01-02] MEDS: APIXABAN 5 MG TABLET PO SCH ×2 (09:21→21:40)
[2022-01-02] MEDS: POLYETHYLENE GLYCOL (HEALTHYLAX) 3350 17 GM PACKET PO SCH (09:22)
[2022-01-02] MEDS: INSULIN (LEVEMIR) 100 UNITS/ML UNITS SQ SCH (09:30)
[2022-01-02] MEDS ORDERED: INSULIN (LEVEMIR) 100 UNITS/ML UNITS SQ ONE (12:24)
[2022-01-02] MEDS: GABAPENTIN 300 MG CAPSULE PO PRN ×2 (13:46→21:41)
[2022-01-02] MEDS ORDERED: INSULIN (LEVEMIR) 100 UNITS/ML UNITS SQ SCH (14:35)
[2022-01-02] MEDS: SODIUM CHLORIDE 1,000 ML IV SCH (21:30)
[2022-01-02] MEDS: ATORVASTATIN CA 20 MG TABLET (FP) PO SCH (21:41)
[2022-01-03] MEDS ORDERED: APIXABAN 5 MG TABLET PO SCH (07:07)
[2022-01-03] MEDS: metFORMIN HCL 500 MG TABLET (FP) PO SCH ×2 (07:30→17:24)
[2022-01-03] MEDS: INSULIN SLIDING SCALE (NOVOLOG) 1 VIAL SQ SCH ×4 (07:32→21:45)
[2022-01-03] MEDS: INSULIN (LEVEMIR) 100 UNITS/ML UNITS SQ SCH (07:32)
[2022-01-03] MEDS: APIXABAN 5 MG TABLET PO SCH ×2 (10:03→21:43)
[2022-01-03] MEDS: ASPIRIN COATED 81 MG TABLET.EC PO SCH (10:04)
[2022-01-03] MEDS: amLODIPine BESYLATE 5 MG TABLET (FP) PO SCH (10:05)
[2022-01-03] MEDS: POLYETHYLENE GLYCOL (HEALTHYLAX) 3350 17 GM PACKET PO SCH (12:04)
[2022-01-03] MEDS: GABAPENTIN 300 MG CAPSULE PO PRN (17:24)
[2022-01-03] MEDS: traMADol HCL 50 MG TABLET PO PRN (17:24)
[2022-01-03] MEDS: SODIUM CHLORIDE 1,000 ML IV SCH (21:43)
[2022-01-03] MEDS: ATORVASTATIN CA 20 MG TABLET (FP) PO SCH (21:43)
[2022-01-04] MEDS: INSULIN (LEVEMIR) 100 UNITS/ML UNITS SQ SCH ×2 (07:00→07:06)
[2022-01-04] MEDS: metFORMIN HCL 500 MG TABLET (FP) PO SCH ×3 (07:00→17:46)
[2022-01-04] MEDS: INSULIN SLIDING SCALE (NOVOLOG) 1 VIAL SQ SCH ×5 (07:00→23:04)
[2022-01-04] MEDS: ASPIRIN COATED 81 MG TABLET.EC PO SCH (10:31)
[2022-01-04] MEDS: APIXABAN 5 MG TABLET PO SCH ×2 (10:31→22:54)
[2022-01-04] MEDS: amLODIPine BESYLATE 5 MG TABLET (FP) PO SCH (10:31)
[2022-01-04] MEDS: POLYETHYLENE GLYCOL (HEALTHYLAX) 3350 17 GM PACKET PO SCH (10:32)
[2022-01-04] MEDS: traMADol HCL 50 MG TABLET PO PRN (10:53)
[2022-01-04 15:11] LABS: EPI CELLS 3 /uL (0-25.1); HYALINE CASTS 0 /uL (0-3.1); URINE APPEARANCE CLEAR; URINE BACTERIA 13 /uL (0-1359); URINE BILIRUBIN NEGATIVE (NEGATIVE); URINE COLOR YELLOW; URINE GLUCOSE (UA) NEGATIVE (NEGATIVE); URINE KETONE NEGATIVE (NEGATIVE); URINE LEUK ESTERASE NEGATIVE (NEGATIVE); URINE NITRITE NEGATIVE (NEGATIVE); URINE PROTEIN 1+ (NEGATIVE); URINE RBC 1 /uL (0-23.9); URINE UROBILINOGEN 0.2 mg/dL (0.2-1.0); URINE WBC 2 /uL (0-25.8)
[2022-01-04] MEDS: ATORVASTATIN CA 20 MG TABLET (FP) PO SCH (22:55)
[2022-01-05] MEDS: metFORMIN HCL 500 MG TABLET (FP) PO SCH ×2 (06:21→19:06)
[2022-01-05] MEDS: INSULIN (LEVEMIR) 100 UNITS/ML UNITS SQ SCH (06:23)
[2022-01-05] MEDS: INSULIN SLIDING SCALE (NOVOLOG) 1 VIAL SQ SCH ×4 (06:24→21:12)
[2022-01-05 07:43] LABS: BASO % 0.6 % (0-2.0); EOS % 6.1 % (0-4.5); HEMATOCRIT 33.3 % (32.4-45.2); HEMOGLOBIN 10.6 GM/dL (10.7-15.3); LYMPH % 35.5 % (8-40); MCH 21.8 pg (25.7-33.7); MCHC 31.7 g/dl (32.0-36.0); MEAN CELL VOLUME 68.7 fl (80-96); MONO % 7.7 % (3.8-10.2); NEUT % 50.1 % (42.8-82.8); PLATELET COUNT 223 10^3/uL (134-434); RBC 4.85 M/mm3 (3.60-5.2); WHITE BLOOD COUNT 4.6 K/mm3 (4.0-10.0)
[2022-01-05 08:01] LABS: ALBUMIN 2.8 g/dl (3.4-5.0); BLOOD UREA NITROGEN 25.2 mg/dL (7-18); CALCIUM 9.6 mg/dL (8.5-10.1)
[2022-01-05 08:04] LABS: CREATININE 1.1 mg/dL (0.55-1.3)
[2022-01-05 08:05] LABS: TOT PROT 5.9 g/dl (6.4-8.2)
[2022-01-05 08:09] LABS: BILIRUBIN,TOTAL 0.3 mg/dL (0.2-1)
[2022-01-05 08:09] LABS: DRVVT CONFIRM SECONDS 0.8 ratio (0.8-1.2)
[2022-01-05] MEDS: POLYETHYLENE GLYCOL (HEALTHYLAX) 3350 17 GM PACKET PO SCH ×2 (10:13→10:21)
[2022-01-05] MEDS: amLODIPine BESYLATE 5 MG TABLET (FP) PO SCH (10:13)
[2022-01-05] MEDS: ASPIRIN COATED 81 MG TABLET.EC PO SCH (10:13)
[2022-01-05] MEDS: APIXABAN 5 MG TABLET PO SCH ×2 (10:16→21:11)
[2022-01-05] MEDS: ATORVASTATIN CA 20 MG TABLET (FP) PO SCH (21:12)
[2022-01-06] MEDS: INSULIN SLIDING SCALE (NOVOLOG) 1 VIAL SQ SCH ×4 (06:20→21:01)
[2022-01-06] MEDS: INSULIN (LEVEMIR) 100 UNITS/ML UNITS SQ SCH (06:51)
[2022-01-06] MEDS: metFORMIN HCL 500 MG TABLET (FP) PO SCH ×2 (06:59→17:48)
[2022-01-06] MEDS: ASPIRIN COATED 81 MG TABLET.EC PO SCH (09:05)
[2022-01-06] MEDS: amLODIPine BESYLATE 5 MG TABLET (FP) PO SCH (09:05)
[2022-01-06] MEDS: APIXABAN 5 MG TABLET PO SCH ×2 (09:05→21:00)
[2022-01-06] MEDS: POLYETHYLENE GLYCOL (HEALTHYLAX) 3350 17 GM PACKET PO SCH (09:06)
[2022-01-06] MEDS: GABAPENTIN 300 MG CAPSULE PO PRN (09:09)
[2022-01-06] MEDS: ATORVASTATIN CA 20 MG TABLET (FP) PO SCH (21:01)
[2022-01-07] MEDS: GABAPENTIN 300 MG CAPSULE PO PRN (01:15)
[2022-01-07 06:36] VITALS: TEMP 97.9
[2022-01-07] MEDS: metFORMIN HCL 500 MG TABLET (FP) PO SCH (06:53)
[2022-01-07] MEDS: INSULIN (LEVEMIR) 100 UNITS/ML UNITS SQ SCH (06:53)
[2022-01-07] MEDS: INSULIN SLIDING SCALE (NOVOLOG) 1 VIAL SQ SCH ×2 (07:32→11:33)
[2022-01-07 08:50] VITALS: BP 154/88; PULSE 62
[2022-01-07] MEDS: ASPIRIN COATED 81 MG TABLET.EC PO SCH (09:28)
[2022-01-07] MEDS: amLODIPine BESYLATE 5 MG TABLET (FP) PO SCH (09:29)
[2022-01-07] MEDS: APIXABAN 5 MG TABLET PO SCH (09:29)
[2022-01-07] MEDS: POLYETHYLENE GLYCOL (HEALTHYLAX) 3350 17 GM PACKET PO SCH (09:30)
[2022-01-07] MEDS: traMADol HCL 50 MG TABLET PO PRN (09:32)
[2022-01-07] MEDS ORDERED: AMOXICILLIN 500 MG CAPSULE (FP) PO SCH (12:00)
== END 2022-01-07 14:26 | disposition home health service (06) | DRG 638 ==
LOC: JER 12:47 → JERBED 18:30 → J4W 01-01 03:40 → J7W 01-01 17:40 → J4W 01-01 17:41
PROVIDERS: ADMIT Internal Medicine; ATTEND Internal Medicine
DX: E11.65 Type 2 diabetes mellitus with hyperglycemia (principal); B02.23 Postherpetic polyneuropathy; N17.9 Acute kidney failure, unspecified; R29.6 Repeated falls; E11.40 Type 2 diabetes mellitus with diabetic neuropathy, unspecified; E78.5 Hyperlipidemia, unspecified; I10 Essential (primary) hypertension; D86.9 Sarcoidosis, unspecified; M48.07 Spinal stenosis, lumbosacral region; R59.0 Localized enlarged lymph nodes; R91.1 Solitary pulmonary nodule; R53.1 Weakness; N20.0 Calculus of kidney; N28.1 Cyst of kidney, acquired; R59.9 Enlarged lymph nodes, unspecified; E66.9 Obesity, unspecified; Z91.14 Patient's other noncompliance with medication regimen; Z86.718 Personal history of other venous thrombosis and embolism; Z68.32 Body mass index [BMI] 32.0-32.9, adult; Z86.16 Personal history of COVID-19
CPT/HCPCS: 36415; 70450-TC; 70551-TC; 71046-TC-FY; 71260-TC; 72125-TC; 72141-TC; 72170-TC-FY; 74176-TC; 80053; 81003; 82607; 82962; 83036; 84443; 84484; 85025; 85610; 85613; 85730; 85732; 86780; 86850; 86900; 86901; 87086; 93005; 93010; 97116-GP; 97162-GP; 99285-25; C9803; Q9967; U0003; U0005

== ENCOUNTER 2023-09-30 13:51 | Inpatient (IN) | payer OTHER ==
[2023-09-30 14:05] VITALS: BMI 28.0
[2023-09-30] MEDS ORDERED: LABETALOL HCL 5 MG/1 ML (100MG/20 ML VIAL) IVPUSH ONE ×3 (14:51→16:40)
[2023-09-30] MEDS ORDERED: LABETALOL HCL 20 MG/4 ML VIAL ONE ×2 (15:00→15:56)
[2023-09-30] MEDS: SODIUM CHLORIDE 1,000 ML IV SCH (15:05)
[2023-09-30 15:11] LABS: INR 1.05 (0.83-1.09); PROTHROMBIN TIME (PATIENT) 12.2 SEC (9.7-13.0)
[2023-09-30 15:13] LABS: ACTIVATED PTT 29.9 SECONDS (25.2-36.5)
[2023-09-30 15:18] LABS: BASO % 1.6 % (0-2.0); EOS % 3.7 % (0-4.5); HEMATOCRIT 37.9 % (32.4-45.2); HEMOGLOBIN 11.9 GM/dL (10.7-15.3); LYMPH % 30.4 % (8-40); MCH 21.4 pg (25.7-33.7); MCHC 31.3 g/dl (32.0-36.0); MEAN CELL VOLUME 68.2 fl (80-96); MEAN PLT VOLUME 8.8 fl (7.5-11.1); NEUT % 57.3 % (42.8-82.8); PLATELET COUNT 214 10^3/uL (134-434); RBC 5.56 M/mm3 (3.60-5.2); RDW 15.9 % (11.6-15.6); WHITE BLOOD COUNT 5.4 K/mm3 (4.0-10.0)
[2023-09-30 15:32] LABS: CHLORIDE 104 mmol/L (98-107); SODIUM 137 mmol/L (136-145)
[2023-09-30 15:35] LABS: CALCIUM 8.9 mg/dL (8.5-10.1)
[2023-09-30 15:36] LABS: ANION GAP 7 mmol/L (4-13); CO2 26 mmol/L (21-32)
[2023-09-30 15:37] LABS: BLOOD UREA NITROGEN 17.3 mg/dL (7-18)
[2023-09-30 15:38] LABS: ANISOCYTOSIS 2+; MACROCYTOSIS 0; OVALOCYTE 1+
[2023-09-30 15:39] LABS: CREATININE 1.4 mg/dL (0.55-1.3); SGOT/AST 16 U/L (15-37); SGPT/ALT 13 U/L (13-61)
[2023-09-30 15:40] LABS: CHOLESTEROL 256 mg/dL (50-200)
[2023-09-30 15:41] LABS: LDL CHOLESTEROL (ONLY SJRH) 164 mg/dL (5-100); TOT PROT 6.8 g/dl (6.4-8.2)
[2023-09-30 15:42] LABS: BILIRUBIN,TOTAL 0.5 mg/dL (0.2-1)
[2023-09-30 15:43] LABS: ALK PHOS 108 U/L (45-117); GLUCOSE,RANDOM 444 mg/dL (74-106); HDL CHOLESTEROL 64 mg/dL (40-60)
[2023-09-30] MEDS ORDERED: INSULIN REGULAR HUMAN 100 UNITS/ML *VIAL IVPUSH ONE (15:56)
[2023-09-30] MEDS ORDERED: ASPIRIN 325 MG ENTERIC COATED TABLET (FP) PO ONE (16:02)
[2023-09-30] MEDS ORDERED: KCL 10 MEQ IVPB 10 MEQ/100 ML INFUS.BAG IVPB ONE (16:13)
[2023-09-30] MEDS ORDERED: ASPIRIN 325 MG TABLET ONE (16:14)
[2023-09-30] MEDS: KCL 10 MEQ IVPB 10 MEQ/100 ML INFUS.BAG IVPB SCH ×3 (16:20→21:27)
[2023-09-30] MEDS ORDERED: NICARDIPINE 25 MG in DEXTROSE 5%-WATER - 240 ML IVPB SCH (16:45)
[2023-09-30] MEDS ORDERED: KCL 10 MEQ IVPB 20 MEQ/200 ML INFUS.BAG IVPB ONE (17:34)
[2023-09-30] MEDS ORDERED: ACETAMINOPHEN 1000 MG/100 ML BAG IVPB ONE (17:35)
[2023-09-30] MEDS: NICARDIPINE 25 MG in DEXTROSE 5%-WATER - 240 ML IVPB SCH ×2 (17:45→18:05)
[2023-09-30] MEDS ORDERED: GABAPENTIN 300 MG CAPSULE PO PRN (17:53)
[2023-09-30] MEDS ORDERED: MAG HYDROX/AL HYDROX/SIMETH 30 ML UNIT-DOSE CUP PO PRN (17:53)
[2023-09-30] MEDS ORDERED: ACETAMINOPHEN 325 MG TABLET (FP) PO PRN (17:53)
[2023-09-30] MEDS ORDERED: ACETAMINOPHEN INJECTION 100 ML IVPB ONE (17:56)
[2023-09-30] MEDS ORDERED: PATIENT'S OWN MEDICATION (NON-FORMULARY) (Dulaglutide [Trulicity] 0.75 MG/0.5 ML Pen.Injct SQ SCH (18:00)
[2023-09-30] MEDS ORDERED: ROSUVASTATIN CA 20 MG TABLET PO SCH (18:00)
[2023-09-30] MEDS ORDERED: ROSUVASTATIN CA 20 MG TABLET ONE (19:11)
[2023-09-30] MEDS ORDERED: HYDROCHLOROTHIAZIDE 25 MG TABLET (FP) ONE (19:13)
[2023-09-30] MEDS ORDERED: VALSARTAN 80 MG TABLET ONE (19:14)
[2023-09-30] MEDS: VALSARTAN 160 MG TABLET PO SCH (19:19)
[2023-09-30] MEDS: HYDROCHLOROTHIAZIDE 25 MG TABLET (FP) PO SCH (19:19)
[2023-09-30] MEDS ORDERED: amLODIPine BESYLATE 5 MG TABLET (FP) ONE (20:59)
[2023-09-30] MEDS ORDERED: APIXABAN 5 MG TABLET ONE (21:39)
[2023-09-30] MEDS ORDERED: metFORMIN HCL 500 MG TABLET (FP) ONE (21:39)
[2023-09-30] MEDS: APIXABAN 5 MG TABLET PO SCH (21:51)
[2023-09-30] MEDS: INSULIN SLIDING SCALE (NOVOLOG) 1 VIAL SQ SCH (21:52)
[2023-09-30] MEDS ORDERED: metFORMIN HCL 500 MG TABLET (FP) PO SCH (22:00)
[2023-09-30] MEDS ORDERED: INSULIN (NOVOLOG) ASPART 100 UNITS/ML 10ML VIAL SQ SCH (22:00)
[2023-10-01] MEDS: INSULIN SLIDING SCALE (NOVOLOG) 1 VIAL SQ SCH ×4 (07:23→21:22)
[2023-10-01] MEDS: INSULIN (NOVOLOG) ASPART 100 UNITS/ML 10ML VIAL SQ SCH ×3 (07:23→17:15)
[2023-10-01] MEDS ORDERED: metFORMIN HCL 500 MG TABLET (FP) ONE (07:30)
[2023-10-01] MEDS: metFORMIN HCL 500 MG TABLET (FP) PO SCH ×2 (07:37→17:26)
[2023-10-01] MEDS: VALSARTAN 160 MG TABLET PO SCH ×2 (07:37→09:12)
[2023-10-01] MEDS: APIXABAN 5 MG TABLET PO SCH ×2 (07:38→09:12)
[2023-10-01] MEDS: ASPIRIN COATED 81 MG TABLET.EC PO SCH ×2 (07:38→09:12)
[2023-10-01] MEDS: HYDROCHLOROTHIAZIDE 25 MG TABLET (FP) PO SCH ×2 (07:39→09:12)
[2023-10-01] MEDS: INSULIN (LEVEMIR) 100 UNITS/ML UNITS SQ SCH (07:42)
[2023-10-01] MEDS ORDERED: INSULIN (LEVEMIR) 100 UNITS/ML UNITS SQ ONE (07:42)
[2023-10-01] MEDS ORDERED: amLODIPine BESYLATE 10 MG TABLET (FP) PO ONE ×2 (08:04→08:15)
[2023-10-01] MEDS ORDERED: amLODIPine BESYLATE 10 MG TABLET (FP) ONE ×2 (08:06→10:18)
[2023-10-01 08:08] LABS: POTASSIUM 3.7 mmol/L (3.5-5.1)
[2023-10-01 08:11] LABS: BASO % 0.6 % (0-2.0); EOS % 4.6 % (0-4.5); HEMOGLOBIN 11.2 GM/dL (10.7-15.3); LYMPH % 37.9 % (8-40); MCH 21.4 pg (25.7-33.7); MEAN CELL VOLUME 68.9 fl (80-96); MEAN PLT VOLUME 8.8 fl (7.5-11.1); MONO % 7.6 % (3.8-10.2); NEUT % 49.3 % (42.8-82.8); PLATELET COUNT 210 10^3/uL (134-434); RBC 5.22 M/mm3 (3.60-5.2); RDW 15.3 % (11.6-15.6); WHITE BLOOD COUNT 5.2 K/mm3 (4.0-10.0)
[2023-10-01 08:16] LABS: BLOOD UREA NITROGEN 15.1 mg/dL (7-18); CALCIUM 8.8 mg/dL (8.5-10.1)
[2023-10-01 08:17] LABS: ALBUMIN 2.8 g/dl (3.4-5.0)
[2023-10-01 08:19] LABS: CREATININE 1.1 mg/dL (0.55-1.3)
[2023-10-01 08:21] LABS: BILIRUBIN,TOTAL 0.4 mg/dL (0.2-1); TOT PROT 6.2 g/dl (6.4-8.2)
[2023-10-01] MEDS: POLYETHYLENE GLYCOL (HEALTHYLAX) 3350 17 GM PACKET PO SCH (09:12)
[2023-10-01] MEDS: amLODIPine BESYLATE 10 MG TABLET (FP) PO SCH (10:22)
[2023-10-01] MEDS: SODIUM CHLORIDE 1,000 ML IV SCH (14:47)
[2023-10-01] MEDS ORDERED: ROSUVASTATIN CA 20 MG TABLET PO SCH (15:05)
[2023-10-01] MEDS: ROSUVASTATIN CA 20 MG TABLET PO SCH (22:39)
[2023-10-02 01:24] LABS: EPI CELLS 17 /uL (0-25.1); HYALINE CASTS 1 /uL (0-3.1); PH,URINE 5.5 (5.0-8.0); URINE APPEARANCE CLOUDY; URINE BACTERIA 40 /uL (0-1359); URINE BILIRUBIN NEGATIVE (NEGATIVE); URINE COLOR YELLOW; URINE GLUCOSE (UA) NEGATIVE (NEGATIVE); URINE KETONE TRACE (NEGATIVE); URINE LEUK ESTERASE NEGATIVE (NEGATIVE); URINE NITRITE NEGATIVE (NEGATIVE); URINE PROTEIN 3+ (NEGATIVE); URINE RBC 16 /uL (0-23.9); URINE WBC 15 /uL (0-25.8)
[2023-10-02] MEDS: INSULIN SLIDING SCALE (NOVOLOG) 1 VIAL SQ SCH ×4 (06:31→23:05)
[2023-10-02] MEDS: INSULIN (LEVEMIR) 100 UNITS/ML UNITS SQ SCH (06:32)
[2023-10-02] MEDS: metFORMIN HCL 500 MG TABLET (FP) PO SCH ×2 (06:32→17:12)
[2023-10-02] MEDS: INSULIN (NOVOLOG) ASPART 100 UNITS/ML 10ML VIAL SQ SCH ×3 (08:11→17:12)
[2023-10-02] MEDS: HYDROCHLOROTHIAZIDE 25 MG TABLET (FP) PO SCH (09:35)
[2023-10-02] MEDS: ASPIRIN COATED 81 MG TABLET.EC PO SCH (09:35)
[2023-10-02] MEDS: amLODIPine BESYLATE 10 MG TABLET (FP) PO SCH (09:35)
[2023-10-02] MEDS: POLYETHYLENE GLYCOL (HEALTHYLAX) 3350 17 GM PACKET PO SCH (09:36)
[2023-10-02] MEDS: VALSARTAN 160 MG TABLET PO SCH (09:36)
[2023-10-02] MEDS: SODIUM CHLORIDE 1,000 ML IV SCH (17:11)
[2023-10-02] MEDS: ROSUVASTATIN CA 20 MG TABLET PO SCH (22:36)
[2023-10-03] MEDS: metFORMIN HCL 500 MG TABLET (FP) PO SCH ×2 (06:42→17:20)
[2023-10-03] MEDS: INSULIN (LEVEMIR) 100 UNITS/ML UNITS SQ SCH (06:43)
[2023-10-03] MEDS: INSULIN (NOVOLOG) ASPART 100 UNITS/ML 10ML VIAL SQ SCH ×3 (06:44→17:21)
[2023-10-03] MEDS: INSULIN SLIDING SCALE (NOVOLOG) 1 VIAL SQ SCH ×3 (06:46→17:21)
[2023-10-03 07:30] LABS: EOS % 4.5 % (0-4.5); HEMATOCRIT 35.3 % (32.4-45.2); HEMOGLOBIN 11.5 GM/dL (10.7-15.3); LYMPH % 31.6 % (8-40); MCH 21.8 pg (25.7-33.7); MCHC 32.4 g/dl (32.0-36.0); MEAN CELL VOLUME 67.3 fl (80-96); MEAN PLT VOLUME 8.4 fl (7.5-11.1); MONO % 6.6 % (3.8-10.2); NEUT % 56.3 % (42.8-82.8); PLATELET COUNT 239 10^3/uL (134-434); RBC 5.25 M/mm3 (3.60-5.2); RDW 15.3 % (11.6-15.6); WHITE BLOOD COUNT 5.9 K/mm3 (4.0-10.0)
[2023-10-03 09:16] LABS: POTASSIUM 3.9 mmol/L (3.5-5.1)
[2023-10-03 09:19] LABS: ALBUMIN 2.9 g/dl (3.4-5.0); CALCIUM 9.2 mg/dL (8.5-10.1)
[2023-10-03 09:20] LABS: BLOOD UREA NITROGEN 31.4 mg/dL (7-18)
[2023-10-03 09:22] LABS: CREATININE 1.4 mg/dL (0.55-1.3)
[2023-10-03 09:24] LABS: BILIRUBIN,TOTAL 0.3 mg/dL (0.2-1); TOT PROT 6.2 g/dl (6.4-8.2)
[2023-10-03] MEDS: ASPIRIN COATED 81 MG TABLET.EC PO SCH (10:10)
[2023-10-03] MEDS: VALSARTAN 160 MG TABLET PO SCH (10:10)
[2023-10-03] MEDS: amLODIPine BESYLATE 10 MG TABLET (FP) PO SCH (10:10)
[2023-10-03] MEDS: HYDROCHLOROTHIAZIDE 25 MG TABLET (FP) PO SCH (10:10)
[2023-10-03] MEDS: POLYETHYLENE GLYCOL (HEALTHYLAX) 3350 17 GM PACKET PO SCH (10:10)
[2023-10-03] MEDS: SODIUM CHLORIDE 1,000 ML IV SCH (17:19)
[2023-10-03] MEDS: ROSUVASTATIN CA 20 MG TABLET PO SCH (22:37)
[2023-10-03] MEDS: APIXABAN 5 MG TABLET PO SCH (22:37)
[2023-10-04] MEDS: INSULIN SLIDING SCALE (NOVOLOG) 1 VIAL SQ SCH ×5 (06:53→22:00)
[2023-10-04] MEDS: INSULIN (NOVOLOG) ASPART 100 UNITS/ML 10ML VIAL SQ SCH ×3 (06:55→18:05)
[2023-10-04] MEDS: INSULIN (LEVEMIR) 100 UNITS/ML UNITS SQ SCH (06:57)
[2023-10-04] MEDS: metFORMIN HCL 500 MG TABLET (FP) PO SCH ×2 (07:04→18:23)
[2023-10-04] MEDS: POLYETHYLENE GLYCOL (HEALTHYLAX) 3350 17 GM PACKET PO SCH (10:28)
[2023-10-04] MEDS: APIXABAN 5 MG TABLET PO SCH ×2 (10:28→21:53)
[2023-10-04] MEDS: HYDROCHLOROTHIAZIDE 25 MG TABLET (FP) PO SCH (10:28)
[2023-10-04] MEDS: ASPIRIN COATED 81 MG TABLET.EC PO SCH (10:28)
[2023-10-04] MEDS: amLODIPine BESYLATE 10 MG TABLET (FP) PO SCH (10:28)
[2023-10-04] MEDS: VALSARTAN 160 MG TABLET PO SCH (10:28)
[2023-10-04] MEDS: SODIUM CHLORIDE 1,000 ML IV SCH (18:06)
[2023-10-04 19:08] LABS: EPI CELLS 18 /uL (0-25.1); HYALINE CASTS 0 /uL (0-3.1); URINE APPEARANCE CLEAR; URINE BACTERIA 55 /uL (0-1359); URINE BILIRUBIN NEGATIVE (NEGATIVE); URINE COLOR YELLOW; URINE GLUCOSE (UA) NEGATIVE (NEGATIVE); URINE KETONE TRACE (NEGATIVE); URINE LEUK ESTERASE NEGATIVE (NEGATIVE); URINE NITRITE NEGATIVE (NEGATIVE); URINE PROTEIN 3+ (NEGATIVE); URINE RBC 3 /uL (0-23.9); URINE UROBILINOGEN 0.2 mg/dL (0.2-1.0); URINE WBC 6 /uL (0-25.8)
[2023-10-04] MEDS: ROSUVASTATIN CA 20 MG TABLET PO SCH (21:52)
[2023-10-05] MEDS: metFORMIN HCL 500 MG TABLET (FP) PO SCH ×2 (06:25→17:24)
[2023-10-05] MEDS: INSULIN (LEVEMIR) 100 UNITS/ML UNITS SQ SCH (06:25)
[2023-10-05] MEDS: INSULIN (NOVOLOG) ASPART 100 UNITS/ML 10ML VIAL SQ SCH ×3 (06:26→17:22)
[2023-10-05] MEDS: amLODIPine BESYLATE 10 MG TABLET (FP) PO SCH (10:00)
[2023-10-05] MEDS: VALSARTAN 160 MG TABLET PO SCH (10:00)
[2023-10-05] MEDS: CEPHALEXIN MONOHYDRATE 500 MG CAPSULE (UD) PO SCH ×2 (10:00→22:13)
[2023-10-05] MEDS: ASPIRIN COATED 81 MG TABLET.EC PO SCH (10:00)
[2023-10-05] MEDS: APIXABAN 5 MG TABLET PO SCH ×2 (10:01→22:13)
[2023-10-05] MEDS: HYDROCHLOROTHIAZIDE 25 MG TABLET (FP) PO SCH (10:01)
[2023-10-05] MEDS: POLYETHYLENE GLYCOL (HEALTHYLAX) 3350 17 GM PACKET PO SCH (10:01)
[2023-10-05] MEDS: INSULIN SLIDING SCALE (NOVOLOG) 1 VIAL SQ SCH ×3 (12:06→22:00)
[2023-10-05] MEDS: SODIUM CHLORIDE 1,000 ML IV SCH (15:34)
[2023-10-05] MEDS: ROSUVASTATIN CA 20 MG TABLET PO SCH (22:12)
[2023-10-06] MEDS: INSULIN SLIDING SCALE (NOVOLOG) 1 VIAL SQ SCH ×3 (06:41→21:07)
[2023-10-06] MEDS: INSULIN (NOVOLOG) ASPART 100 UNITS/ML 10ML VIAL SQ SCH ×3 (06:42→16:39)
[2023-10-06] MEDS: metFORMIN HCL 500 MG TABLET (FP) PO SCH ×2 (06:42→16:28)
[2023-10-06] MEDS: INSULIN (LEVEMIR) 100 UNITS/ML UNITS SQ SCH (07:22)
[2023-10-06 08:00] LABS: POTASSIUM 3.9 mmol/L (3.5-5.1)
[2023-10-06 08:04] LABS: BLOOD UREA NITROGEN 41.1 mg/dL (7-18); CALCIUM 9.1 mg/dL (8.5-10.1)
[2023-10-06 08:08] LABS: CREATININE 1.4 mg/dL (0.55-1.3)
[2023-10-06] MEDS: amLODIPine BESYLATE 10 MG TABLET (FP) PO SCH (09:24)
[2023-10-06] MEDS: ASPIRIN COATED 81 MG TABLET.EC PO SCH (09:24)
[2023-10-06] MEDS: POLYETHYLENE GLYCOL (HEALTHYLAX) 3350 17 GM PACKET PO SCH (09:24)
[2023-10-06] MEDS: APIXABAN 5 MG TABLET PO SCH ×2 (09:24→21:09)
[2023-10-06] MEDS: CEPHALEXIN MONOHYDRATE 500 MG CAPSULE (UD) PO SCH ×2 (09:25→21:09)
[2023-10-06] MEDS: HYDROCHLOROTHIAZIDE 25 MG TABLET (FP) PO SCH (09:26)
[2023-10-06] MEDS: SPIRONOLACTONE 25 MG TABLET PO SCH (09:56)
[2023-10-06] MEDS: VALSARTAN 160 MG TABLET PO SCH (10:38)
[2023-10-06] MEDS: SODIUM CHLORIDE 1,000 ML IV SCH (17:00)
[2023-10-06] MEDS: ROSUVASTATIN CA 20 MG TABLET PO SCH (21:09)
[2023-10-07] MEDS: INSULIN SLIDING SCALE (NOVOLOG) 1 VIAL SQ SCH ×4 (06:38→21:53)
[2023-10-07] MEDS: metFORMIN HCL 500 MG TABLET (FP) PO SCH ×2 (06:39→17:43)
[2023-10-07] MEDS: INSULIN (LEVEMIR) 100 UNITS/ML UNITS SQ SCH (06:52)
[2023-10-07] MEDS: INSULIN (NOVOLOG) ASPART 100 UNITS/ML 10ML VIAL SQ SCH ×3 (06:52→17:41)
[2023-10-07] MEDS: POLYETHYLENE GLYCOL (HEALTHYLAX) 3350 17 GM PACKET PO SCH (10:40)
[2023-10-07] MEDS: CEPHALEXIN MONOHYDRATE 500 MG CAPSULE (UD) PO SCH ×2 (10:40→21:52)
[2023-10-07] MEDS: amLODIPine BESYLATE 10 MG TABLET (FP) PO SCH (10:40)
[2023-10-07] MEDS: VALSARTAN 160 MG TABLET PO SCH (10:40)
[2023-10-07] MEDS: SPIRONOLACTONE 25 MG TABLET PO SCH (10:40)
[2023-10-07] MEDS: ASPIRIN COATED 81 MG TABLET.EC PO SCH (10:41)
[2023-10-07] MEDS: APIXABAN 5 MG TABLET PO SCH ×2 (10:41→21:52)
[2023-10-07] MEDS: HYDROCHLOROTHIAZIDE 25 MG TABLET (FP) PO SCH (10:41)
[2023-10-07] MEDS: SODIUM CHLORIDE 1,000 ML IV SCH (17:35)
[2023-10-07] MEDS ORDERED: INSULIN (NOVOLOG) ASPART 100 UNITS/ML 10ML VIAL ONE (21:09)
[2023-10-07] MEDS: ROSUVASTATIN CA 20 MG TABLET PO SCH (21:52)
[2023-10-08] MEDS: INSULIN (NOVOLOG) ASPART 100 UNITS/ML 10ML VIAL SQ SCH ×2 (06:09→11:49)
[2023-10-08] MEDS: INSULIN (LEVEMIR) 100 UNITS/ML UNITS SQ SCH (06:09)
[2023-10-08] MEDS: INSULIN SLIDING SCALE (NOVOLOG) 1 VIAL SQ SCH ×2 (06:09→11:48)
[2023-10-08] MEDS: metFORMIN HCL 500 MG TABLET (FP) PO SCH (06:10)
[2023-10-08] MEDS ORDERED: INSULIN (NOVOLOG) ASPART 100 UNITS/ML 10ML VIAL ONE (06:35)
[2023-10-08] MEDS: POLYETHYLENE GLYCOL (HEALTHYLAX) 3350 17 GM PACKET PO SCH (09:22)
[2023-10-08] MEDS: VALSARTAN 160 MG TABLET PO SCH (09:22)
[2023-10-08] MEDS: amLODIPine BESYLATE 10 MG TABLET (FP) PO SCH (09:22)
[2023-10-08] MEDS: APIXABAN 5 MG TABLET PO SCH (09:23)
[2023-10-08] MEDS: CEPHALEXIN MONOHYDRATE 500 MG CAPSULE (UD) PO SCH (09:23)
[2023-10-08] MEDS: SPIRONOLACTONE 25 MG TABLET PO SCH (09:23)
[2023-10-08] MEDS: ASPIRIN COATED 81 MG TABLET.EC PO SCH (09:23)
[2023-10-08] MEDS: HYDROCHLOROTHIAZIDE 25 MG TABLET (FP) PO SCH (09:23)
[2023-10-08 10:18] VITALS: RESP 18
[2023-10-08 14:52] VITALS: BP 136/77; PULSE 73; TEMP 98
== END 2023-10-08 17:29 | DRG 65 ==
LOC: JER 13:51 → JERBED 16:03 → J4W 10-01 15:21
PROVIDERS: ADMIT Internal Medicine; ATTEND Internal Medicine
DX: I63.89 Other cerebral infarction (principal); I16.1 Hypertensive emergency; E78.5 Hyperlipidemia, unspecified; I11.9 Hypertensive heart disease without heart failure; E11.9 Type 2 diabetes mellitus without complications; E11.319 Type 2 diabetes mellitus with unspecified diabetic retinopathy without macular edema; D86.9 Sarcoidosis, unspecified; R29.701 NIHSS score 1; I69.320 Aphasia following cerebral infarction; Z86.718 Personal history of other venous thrombosis and embolism; Z91.148 Patient's other noncompliance with medication regimen for other reason
CPT/HCPCS: 36415; 70450-TC; 70551-TC; 80048; 80053; 80061; 81003; 82550; 82962; 83036; 84443; 84484; 85025; 85610; 85730; 86850; 86900; 86901; 87086; 87635; 93005; 93010; 93306-TC; 93880-TC; 97116-GP; 97162-GP; 99285-25

== ENCOUNTER 2024-07-09 19:39 | Inpatient (IN) | payer OTHER ==
[2024-07-09 20:48] LABS: BASO % 0.4 % (0-2.0); EOS % 2.9 % (0-4.5); HEMOGLOBIN 10.8 GM/dL (10.7-15.3); LYMPH % 23.4 % (8-40); MCH 21.2 pg (25.7-33.7); MEAN CELL VOLUME 68.4 fl (80-96); MEAN PLT VOLUME 8.3 fl (7.5-11.1); MONO % 5.2 % (3.8-10.2); NEUT % 68.1 % (42.8-82.8); PLATELET COUNT 239 10^3/uL (134-434); RBC 5.11 M/mm3 (3.60-5.2); RDW 15.9 % (11.6-15.6); WHITE BLOOD COUNT 4.7 K/mm3 (4.0-10.0)
[2024-07-09 20:51] LABS: INR 1.11 (0.83-1.09); PROTHROMBIN TIME (PATIENT) 12.7 SEC (9.7-13.0)
[2024-07-09 20:54] LABS: ACTIVATED PTT 28.1 SECONDS (25.2-36.5)
[2024-07-09 21:21] LABS: ADD RBC MORPHOLOGY YES
[2024-07-09 21:28] LABS: CHLORIDE 103 mmol/L (98-107); SODIUM 136 mmol/L (136-145)
[2024-07-09] MEDS: SODIUM CHLORIDE 1,000 ML IV SCH (21:29)
[2024-07-09 21:30] LABS: ANION GAP 6 mmol/L (4-13); CALCIUM 9.2 mg/dL (8.5-10.1); CO2 26 mmol/L (21-32)
[2024-07-09 21:31] LABS: BLOOD UREA NITROGEN 22.4 mg/dL (7-18)
[2024-07-09 21:32] LABS: GLUCOSE,RANDOM 291 mg/dL (74-106)
[2024-07-09 21:33] LABS: ANISOCYTOSIS 3+; MACROCYTOSIS 0
[2024-07-09 21:34] LABS: CREATININE 1.4 mg/dL (0.55-1.3); PLATELET ESTIMATE ADEQUATE; SGOT/AST 26 U/L (15-37); SGPT/ALT 17 U/L (13-61)
[2024-07-09 21:35] LABS: CHOLESTEROL 236 mg/dL (50-200); TOT PROT 6.6 g/dl (6.4-8.2)
[2024-07-09 21:36] LABS: BILIRUBIN,TOTAL 0.5 mg/dL (0.2-1); LDL CHOLESTEROL (ONLY SJRH) 137 mg/dL (5-100)
[2024-07-09 21:38] LABS: ALK PHOS 74 U/L (45-117); HDL CHOLESTEROL 64 mg/dL (40-60)
[2024-07-09 22:58] LABS: EPI CELLS 12 /uL (0-25.1); HYALINE CASTS 0 /uL (0-3.1); URINE APPEARANCE CLEAR; URINE BACTERIA 174 /uL (0-1359); URINE BILIRUBIN NEGATIVE (NEGATIVE); URINE COLOR YELLOW; URINE GLUCOSE (UA) 3+ (NEGATIVE); URINE KETONE NEGATIVE (NEGATIVE); URINE LEUK ESTERASE 1+ (NEGATIVE); URINE NITRITE NEGATIVE (NEGATIVE); URINE PROTEIN 2+ (NEGATIVE); URINE RBC 17 /uL (0-23.9); URINE UROBILINOGEN 0.2 mg/dL (0.2-1.0); URINE WBC 185 /uL (0-25.8)
[2024-07-09] MEDS ORDERED: CEFTRIAXONE 1 GM/50 ML BAG ONE (23:35)
[2024-07-09] MEDS: CEFTRIAXONE 1,000 MG in DEXTROSE 5%-WATER - 50 ML IVPB ONE (23:45)
[2024-07-10] MEDS ORDERED: amLODIPine BESYLATE 10 MG TABLET (FP) ONE (03:10)
[2024-07-10] MEDS: amLODIPine BESYLATE 10 MG TABLET (FP) PO ONE (03:12)
[2024-07-10] MEDS ORDERED: MAG HYDROX/AL HYDROX/SIMETH 30 ML UNIT-DOSE CUP PO PRN (04:20)
[2024-07-10 06:15] VITALS: BMI 27.7
[2024-07-10] MEDS: INSULIN ASPART SLIDING SCALE (NOVOLOG) 1 VIAL SQ SCH (06:17)
[2024-07-10 07:46] LABS: BASO % 0.5 % (0-2.0); EOS % 4.2 % (0-4.5); HEMATOCRIT 35.2 % (32.4-45.2); HEMOGLOBIN 11.1 GM/dL (10.7-15.3); LYMPH % 27.6 % (8-40); MCH 21.9 pg (25.7-33.7); MCHC 31.4 g/dl (32.0-36.0); MEAN CELL VOLUME 69.6 fl (80-96); MEAN PLT VOLUME 9.2 fl (7.5-11.1); MONO % 7.5 % (3.8-10.2); NEUT % 60.2 % (42.8-82.8); PLATELET COUNT 240 10^3/uL (134-434); RBC 5.06 M/mm3 (3.60-5.2); RDW 15.7 % (11.6-15.6); WHITE BLOOD COUNT 5.5 K/mm3 (4.0-10.0)
[2024-07-10 08:07] LABS: POTASSIUM 4.1 mmol/L (3.5-5.1)
[2024-07-10 08:09] LABS: CALCIUM 9.1 mg/dL (8.5-10.1)
[2024-07-10 08:10] LABS: ALBUMIN 3.1 g/dl (3.4-5.0); BLOOD UREA NITROGEN 18.9 mg/dL (7-18)
[2024-07-10 08:13] LABS: CREATININE 1.2 mg/dL (0.55-1.3); PHOSPHOROUS 2.9 mg/dL (2.5-4.9)
[2024-07-10 08:14] LABS: BILIRUBIN,TOTAL 0.4 mg/dL (0.2-1); TOT PROT 6.4 g/dl (6.4-8.2)
[2024-07-10] MEDS: APIXABAN 5 MG TABLET PO SCH (12:11)
[2024-07-10] MEDS: POLYETHYLENE GLYCOL (HEALTHYLAX) 3350 17 GM PACKET PO SCH (12:11)
[2024-07-10] MEDS: ASPIRIN COATED 81 MG TABLET.EC PO SCH (12:12)
[2024-07-10] MEDS: LIDOCAINE 5% TOPICAL PATCH TP SCH (12:12)
[2024-07-10] MEDS: PRAMIPEXOLE DIHYDROCHLORIDE 0.25 MG TABLET PO SCH (21:52)
[2024-07-10] MEDS: ATORVASTATIN CA 40 MG TABLET (FP) PO SCH (21:52)
[2024-07-10] MEDS: LIDOCAINE PATCH REMOVAL MC SCH (21:53)
[2024-07-10] MEDS ORDERED: ATORVASTATIN CA 40 MG TABLET (FP) PO SCH (22:00)
[2024-07-11] MEDS: ASPIRIN 325 MG ENTERIC COATED TABLET (FP) PO SCH (09:49)
[2024-07-11 09:53] LABS: POTASSIUM 3.9 mmol/L (3.5-5.1)
[2024-07-11 10:14] LABS: ALBUMIN 3.2 g/dl (3.4-5.0); BLOOD UREA NITROGEN 17.5 mg/dL (7-18); CALCIUM 9.2 mg/dL (8.5-10.1)
[2024-07-11 10:15] LABS: BILIRUBIN,TOTAL 0.8 mg/dL (0.2-1); TOT PROT 6.7 g/dl (6.4-8.2)
[2024-07-11 10:17] LABS: CREATININE 1.1 mg/dL (0.55-1.3)
[2024-07-11] MEDS: CEFTRIAXONE 1 GM in DEXTROSE 5%-WATER - 50 ML IVPB SCH (11:26)
[2024-07-11] MEDS: INSULIN (LEVEMIR) 100 UNITS/ML UNITS SQ SCH (21:58)
[2024-07-11] MEDS: hydrALAZINE HCL 20 MG/ML VIAL IVPUSH ONE (23:05)
[2024-07-12] MEDS: hydrALAZINE HCL 20 MG/ML VIAL IM ONE (01:12)
[2024-07-12] MEDS ORDERED: amLODIPine BESYLATE 10 MG TABLET (FP) PO SCH ×2 (04:21→10:00)
[2024-07-12] MEDS: amLODIPine BESYLATE 10 MG TABLET (FP) PO ONE (05:04)
[2024-07-12 08:23] LABS: BASO % 0.5 % (0-2.0); EOS % 6.3 % (0-4.5); HEMATOCRIT 35.8 % (32.4-45.2); HEMOGLOBIN 11.4 GM/dL (10.7-15.3); LYMPH % 38.5 % (8-40); MCH 21.8 pg (25.7-33.7); MCHC 31.8 g/dl (32.0-36.0); MEAN CELL VOLUME 68.5 fl (80-96); MEAN PLT VOLUME 8.9 fl (7.5-11.1); MONO % 8.1 % (3.8-10.2); NEUT % 46.6 % (42.8-82.8); PLATELET COUNT 246 10^3/uL (134-434); RBC 5.24 M/mm3 (3.60-5.2); RDW 15.5 % (11.6-15.6); WHITE BLOOD COUNT 4.3 K/mm3 (4.0-10.0)
[2024-07-12 08:31] LABS: CALCIUM 9.2 mg/dL (8.5-10.1)
[2024-07-12 08:32] LABS: BLOOD UREA NITROGEN 17.1 mg/dL (7-18)
[2024-07-12 08:35] LABS: CREATININE 1.1 mg/dL (0.55-1.3)
[2024-07-12] MEDS: HYDROCHLOROTHIAZIDE 25 MG TABLET (FP) PO SCH (09:40)
[2024-07-12] MEDS: LOSARTAN POTASSIUM 50 MG TABLET PO SCH (18:20)
[2024-07-12] MEDS: INSULIN (LEVEMIR) 100 UNITS/ML UNITS SQ SCH (21:12)
[2024-07-13] MEDS: hydrALAZINE HCL 25 MG TABLET (FP) PO PRN (01:36)
[2024-07-13 07:47] LABS: BASO % 0.7 % (0-2.0); EOS % 6.4 % (0-4.5); HEMATOCRIT 36.9 % (32.4-45.2); HEMOGLOBIN 11.4 GM/dL (10.7-15.3); LYMPH % 36.9 % (8-40); MCH 21.5 pg (25.7-33.7); MEAN CELL VOLUME 69.4 fl (80-96); MEAN PLT VOLUME 8.9 fl (7.5-11.1); MONO % 7.2 % (3.8-10.2); NEUT % 48.8 % (42.8-82.8); PLATELET COUNT 245 10^3/uL (134-434); RBC 5.31 M/mm3 (3.60-5.2); RDW 15.3 % (11.6-15.6); WHITE BLOOD COUNT 4.6 K/mm3 (4.0-10.0)
[2024-07-13 08:10] LABS: POTASSIUM 4.1 mmol/L (3.5-5.1)
[2024-07-13 08:21] LABS: CALCIUM 9.3 mg/dL (8.5-10.1)
[2024-07-13 08:24] LABS: CREATININE 1.1 mg/dL (0.55-1.3)
[2024-07-13 10:18] LABS: ANISOCYTOSIS 3+; MACROCYTOSIS 0
[2024-07-13] MEDS: amLODIPine BESYLATE 10 MG TABLET (FP) PO SCH (10:53)
[2024-07-13] MEDS: LOSARTAN POTASSIUM 50 MG TABLET PO ONE (13:32)
[2024-07-14 07:53] LABS: BASO % 0.8 % (0-2.0); EOS % 7.4 % (0-4.5); HEMATOCRIT 35.5 % (32.4-45.2); HEMOGLOBIN 11.4 GM/dL (10.7-15.3); MCH 22.2 pg (25.7-33.7); MEAN CELL VOLUME 69.4 fl (80-96); MEAN PLT VOLUME 8.7 fl (7.5-11.1); MONO % 8.1 % (3.8-10.2); NEUT % 48.7 % (42.8-82.8); PLATELET COUNT 245 10^3/uL (134-434); RBC 5.11 M/mm3 (3.60-5.2); RDW 15.8 % (11.6-15.6); WHITE BLOOD COUNT 4.4 K/mm3 (4.0-10.0)
[2024-07-14 08:14] LABS: POTASSIUM 4.2 mmol/L (3.5-5.1)
[2024-07-14 08:17] LABS: ALBUMIN 2.8 g/dl (3.4-5.0); BLOOD UREA NITROGEN 26.1 mg/dL (7-18); CALCIUM 9.1 mg/dL (8.5-10.1)
[2024-07-14 08:21] LABS: CREATININE 1.3 mg/dL (0.55-1.3)
[2024-07-14 08:24] LABS: BILIRUBIN,TOTAL 0.4 mg/dL (0.2-1)
[2024-07-14] MEDS: LOSARTAN POTASSIUM 50 MG TABLET PO SCH (09:55)
[2024-07-15] MEDS ORDERED: INSULIN ASPART SLIDING SCALE (NOVOLOG) 1 VIAL SQ ONE (11:27)
[2024-07-16] MEDS: GABAPENTIN 300 MG CAPSULE PO PRN (21:20)
[2024-07-17 06:12] VITALS: BP 145/74; PULSE 59; RESP 18; TEMP 98.1
== END 2024-07-17 11:33 | DRG 65 ==
LOC: JER 19:39 → JERBED 07-10 03:12 → J4S 07-10 04:09 → OBSVTOIN 07-12 10:51
PROVIDERS: ADMIT Internal Medicine; ATTEND Nurse Practitioner Family
DX: I63.9 Cerebral infarction, unspecified (principal); N39.0 Urinary tract infection, site not specified; E78.5 Hyperlipidemia, unspecified; R47.1 Dysarthria and anarthria; R29.701 NIHSS score 1; E11.65 Type 2 diabetes mellitus with hyperglycemia; I12.9 Hypertensive chronic kidney disease with stage 1 through stage 4 chronic kidney disease, or unspecified chronic kidney disease; N18.9 Chronic kidney disease, unspecified; I48.91 Unspecified atrial fibrillation; E11.22 Type 2 diabetes mellitus with diabetic chronic kidney disease; Z79.01 Long term (current) use of anticoagulants; R47.81 Slurred speech; Z79.4 Long term (current) use of insulin
CPT/HCPCS: 36415; 70450-TC; 70496-TC; 70498-TC; 70551-TC; 76775-TC; 80048; 80053; 80061; 81003; 82550; 82570; 82962; 83036; 83735; 84100; 84156; 84484; 85025; 85610; 85730; 86038; 86704; 86803; 86850; 86900; 86901; 87086; 87340; 87635; 93005; 93010; 97116-GP; 97162-GP; 99285-25; G0378